=== PATIENT | male | born 1980 | race Caucasian/White ===

== ENCOUNTER 2017-07-05 14:38 | Emergency (ER) | payer OTHER ==
[~2017-07-05] VITALS: Ht 167.6 cm; Wt 81.2 kg
[~2017-07-05 14:38] MED LIST: ONDA4TAB7 SL
[2017-07-05 14:43] VITALS: TEMP 36.8; Ht 167.6 cm; Wt 81.2 kg
[2017-07-05] MEDS ORDERED: DIPHTHERIA/TETANUS/PERTUSSIS 0.5 ML SYR/VIAL IM. ONE (15:15)
[2017-07-05] MEDS ORDERED: MELO-83 PO (15:35)
[2017-07-05] MEDS ORDERED: GABA-113 PO (15:35)
--- NOTE | 2017-07-05 15:49 | DIAGNOSTIC IMAGING REPORT ---
LEFT FEMUR 3 VIEWS CLINICAL HISTORY: Laceration. Foreign body assessment. FINDINGS: AP, frog-leg, and lateral views of the left femur are obtained. No prior studies are available for comparison at the time of dictation. The skeletal structures are well mineralized. There is no radiographic evidence of left femoral fracture. The hip and knee joints are maintained. The visualized left hemipelvis appears intact. Surgical clips are noted along the spermatic cord. No radiodense foreign body is identified. The overlying soft tissues are normal as imaged. IMPRESSION: 1. Unremarkable radiographic assessment of the left femur. 2. No radiodense foreign body is identified as clinically queried. Electronically signed by: Pierre Sorenson M.D. 07/05/2017 3:48 PM Dictated Date/Time: 07/05/2017 3:47 PM
[2017-07-05] MEDS ORDERED: XYLOCAINE 1%/SOD BICARB 20 ML VIAL INFIL ONE (16:00)
[2017-07-05 16:56] VITALS: BP 139/89; PULSE 56; O2SAT 97
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
== END 2017-07-05 16:58 | disposition home or self-care (01) ==
LOC: C.EDB 14:41 → C.EDD 16:58
DX: S71.132A Puncture wound without foreign body, left thigh, initial encounter (principal); W26.8XXA Contact with other sharp object(s), not elsewhere classified, initial encounter; Z23 Encounter for immunization; Z83.3 Family history of diabetes mellitus; Z82.49 Family history of ischemic heart disease and other diseases of the circulatory system; Z84.1 Family history of disorders of kidney and ureter

== ENCOUNTER 2020-08-13 09:53 | Inpatient (IN) ==
[2020-08-13] MEDS ORDERED: dexAMETHasone**PF** 10 MG/ML VIAL IV ONE (10:13)
[2020-08-13] MEDS ORDERED: BENZONATATE 100 MG CAPSULE PO ONE (10:13)
[2020-08-13] MEDS ORDERED: ALBUTEROL HFA 8 GM INHALER INH ONE (10:13)
[2020-08-13] MEDS ORDERED: SODIUM CHLORIDE 0.9% 1000ML 500 ML IV ONE (10:18)
--- NOTE | 2020-08-13 10:18 | Emergency Department Note ---
Impression & Plan Hypoxia, SOB (shortness of breath), COVID-19, Pneumonia ED Provider Note NAME: BANDAR CARLOS AGE: 39 SEX: M : 1980 ARRIVES VIA: Ambulance INFORMANT: [Patient] ED PROVIDER(S): [Pierre Silva MD] CHIEF COMPLAINT: Shortness of breath HISTORY OF PRESENT ILLNESS: The patient is a 39-year-old male who presents to the ED with dyspnea. He also believes he now has a fever. The patient was suffering from flulike symptoms for the last 10 days. He has had body aches, some cough, some vomiting which seemed to quit yesterday. He has been having diarrhea for the last 10 days. Patient has not lost his taste or smell. The patient tested positive for Covid on the ninth, 3 days ago. He was in our ED and felt stable for discharge home. The patient states that in the last 24 hours, he has had increasing dyspnea. As per EMS, his O2 saturation was 85% on their arrival. On arrival here in the ED, he was 88%. He is now on nasal cannula oxygen and saturating well. The patient does complain of some bilateral pleuritic pain with a deep breath. The pain is moderate in severity and to the area of the thoracic back. He has never had a PE or DVT. He has no cardiac history, he has no underlying lung disease. Of note, the patient became ill a few days after his first Covid vaccination. REVIEW OF SYSTEMS: See HPI for pertinent positives and negatives. A total of ten systems were reviewed and were otherwise negative. PMHx/PSHx: See Below SOCIAL HISTORY: See Below. PHYSICAL EXAM: GENERAL: Patient is in no acute distress. HEENT: No acute trauma, normocephalic atraumatic, mucous membranes moist, no nasal congestion, no scleral icterus. NECK: No stridor, no adenopathy, no meningismus, trachea is midline. LUNGS: Wheezing with crackles bilaterally, breath sounds are somewhat diminished, no respiratory distress, breath sounds are equal. HEART: Mildly tachycardic, regular rhythm, no murmurs. ABDOMEN: Soft, nontender, bowel sounds positive, no hernias, no peritonitis. EXTREMITIES: No cyanosis or edema, full range of motion of all the joints without pain or difficulty, no signs for acute trauma. NEUROLOGIC: Oriented x 3, no acute motor or sensory deficits, no focal weakness. SKIN: No rash, no jaundice, no diaphoresis. DIFFERENTIAL DIAGNOSIS: Reactive airway disease, pneumonia, pneumothorax, COPD, COVID-19, CHF, failed outpatient treatment, infection, cardiac ischemia, pulmonary embolism, bronchitis, musculoskeletal, gastrointestinal, as well as other pathologies. EMERGENCY DEPARTMENT COURSE/PROCEDURES: ECG: Indication was shortness of breath. The ECG shows a sinus tachycardia with a rate of 107. There is no ST elevation, no PVCs. The QTc is 427. Continuous Cardiac Monitoring: An order was placed for continuous cardiac monitoring. The monitor shows a rate of 112 with sinus tachycardia. Critical Care Note: I have personally spent 46 minutes of critical care time in the direct management of this patient. This includes bedside care, interpretation of diagnostic studies, and testing, discussion with consultants, patient, and family members, and other required patient management activities. This 46 minutes is in excess of all separately billable procedures. MEDICAL DECISION MAKING: There is a moderate leukocytosis at 15,000, this is consistent with infection or just the stress of his situation. There is a normal hemoglobin and platelet count. No coagulopathy. D-dimer is elevated at 820, this elevation is consistent with the possibility of DVT or PE. Renal panel testing does not show any kidney failure or significant electrolyte abnormality. No concerning liver enzyme elevation. Lactic acid level was not elevated making sepsis less likely. Chest film shows bilateral infiltrates consistent with Covid pneumonia. ECG shows a sinus tachycardia, no acute ischemia. Chest CT does not show PE, Covid pneumonia was seen. Patient presented hypoxic. He has failed outpatient treatment for his Covid pneumonia, he has worsened and is now requiring O2 supplementation. Patient was given a 500 cc saline bolus, he was given oral Tessalon, albuterol via MDI, IV Decadron. The patient is being hospitalized. I spoke to the patient about his findings, case management has been involved. The on-call hospitalist was consulted. Past Med/Surg History Medical History Anxiety Attention deficit hyperactivity disorder (ADHD) Chronic back pain Impaired fasting glucose Learning disability Nephrolithiasis Surgical History H/O umbilical hernia repair (06/22/19) Laparoscopic Right Inguinal Hernia Repair with Mesh Open Umbilical Hernia Repair Dr. Whiting 06-22-19 H/O vasectomy History of foot surgery BILAT X4 TOTAL FOR FLAT FEET Hx of inguinal hernia surgery (06/22/19) Laparoscopic Right Inguinal Hernia Repair with Mesh(Right) Open Umbilical Hernia Repair Dr. 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 [employer] Safe at Home: Yes Assistive Devices: None Allergies Allergies Allergy/AdvReac Type Severity Reaction Status Date / Time bee venom protein (honey bee) Allergy Mild SWELLING Verified 08/13/20 12:17 Home Meds Previous Rx's Medication Instructions Recorded gabapentin 400 mg capsule 400 mg PO TID PRN #90 cap 11/22/19 meloxicam 15 mg tablet 15 mg PO DAILY PRN #30 tab 11/22/19 propranolol 10 mg tablet 10 mg PO BID PRN #60 tab 11/22/19 ondansetron HCl [Zofran] 4 mg PO Q8H PRN #7 tab 08/10/20 Results & Data (ED) Vital Signs Vital Signs - 24 hr 08/13/20 09:57 08/13/20 10:05 08/13/20 10:13 Temperature 37.4 C Temperature Source Oral Pulse Rate 103 H 109 H Pulse Rate from SpO2 Sensor 104 H Respiratory Rate 26 H 23 Respiratory Effort / Characteristics Spontaneous Spontaneous Respiratory Pattern Regular Tachypnea Blood Pressure 142/107 H 142/107 H Blood Pressure Mean 118 118 Pulse Oximetry 97 88 L 94 Oxygen Delivery Method Nasal Cannula Room Air Nasal Cannula Nasal Cannula Oxygen Flow Rate 2 2 2 Sepsis Recent Fever Within 48 Hours No Sepsis New/Unexplained Change in Mental Status No Sepsis Action Taken by Nursing Physician Notified Oxygen Flow Rate - Titration 2 2 Pulse Oximetry Post Tiitration 94 94 08/13/20 10:30 08/13/20 11:00 08/13/20 11:30 Temperature Temperature Source Pulse Rate 112 H 110 H 109 H Pulse Rate from SpO2 Sensor 112 H 112 H 109 H Respiratory Rate 26 H 24 25 H Respiratory Effort / Characteristics Respiratory Pattern Blood Pressure 150/97 H 153/91 H 148/102 H Blood Pressure Mean 114 111 117 Pulse Oximetry 93 95 95 Oxygen Delivery Method Nasal Cannula Nasal Cannula Nasal Cannula Oxygen Flow Rate 2 2 2 Sepsis Recent Fever Within 48 Hours Sepsis New/Unexplained Change in Mental Status Sepsis Action Taken by Nursing Oxygen Flow Rate - Titration Pulse Oximetry Post Tiitration 08/13/20 12:00 Temperature Temperature Source Pulse Rate 112 H Pulse Rate from SpO2 Sensor 114 H Respiratory Rate 25 H Respiratory Effort / Characteristics Respiratory Pattern Blood Pressure 145/94 H Blood Pressure Mean 111 Pulse Oximetry 95 Oxygen Delivery Method Nasal Cannula Oxygen Flow Rate 2 Sepsis Recent Fever Within 48 Hours Sepsis New/Unexplained Change in Mental Status Sepsis Action Taken by Nursing Oxygen Flow Rate - Titration Pulse Oximetry Post Tiitration Home Medications Current Medication List: was personally reviewed by me Laboratory Data Attestation: I reviewed the patient's lab results. Result diagrams: 08/13/20 10:26 08/13/20 10:26 Lab Results 08/13/20 08/13/20 08/13/20 Range/Units 10:26 10:26 10:26 WBC 15.84 H (4.8-10.8) K/uL RBC 5.03 (4.7-6.1) M/uL Hgb 15.6 (14.0-18.0) g/dL Hct 44.5 (42-52) % MCV 88.5 (80-100) fL MCH 31.0 (25-34) pg MCHC 35.1 (32-36) g/dL RDW Std Deviation 44.2 (36.4-46.3) fL RDW Coeff of María 13.5 (11.5-14.5) % Plt Count 254 (130-400) K/uL MPV 10.7 H (7.4-10.4) fL Immature Gran % (Auto) 0.3 % Neut % (Auto) 92.9 % Lymph % (Auto) 4.0 % Callahan % (Auto) 2.7 % Eos % (Auto) 0.0 % Baso % (Auto) 0.1 % Neut # (Auto) 14.72 H (1.4-6.5) K/uL Lymph # (Auto) 0.64 L (1.2-3.4) K/uL Callahan # (Auto) 0.42 (0.11-0.59) K/uL Eos # (Auto) 0.00 (0-0.5) K/uL Baso # (Auto) 0.01 (0-0.2) K/uL Immature Gran # (Auto) 0.05 H (0.00-0.02) K/uL PT 10.4 (9.0-12.0) Seconds INR 1.0 (0.9-1.1) APTT 29.2 (21.0-31.0) Seconds PTT Ratio 1.1 D-Dimer 820 H* (0-500) ug/L FEU Sodium 136 (136-145) mmol/L Potassium 3.7 (3.5-5.1) mmol/L Chloride 101 (98-107) mmol/L Carbon Dioxide 25 (21-32) mmol/L Anion Gap 10.0 (3-11) BUN 19 H (7-18) mg/dl Creatinine 1.12 (0.6-1.4) mg/dl Est Cr Clr Drug Dosing 86.8 ml/min Est GFR ( Amer) 95.4 Est GFR (Non-Af Amer) 82.3 BUN/Creatinine Ratio 16.7 (10-20) Glucose 99 (70-99) mg/dl Lactate (0.4-2.0) mmol/L Calcium 8.9 (8.5-10.1) mg/dl Magnesium 2.6 H (1.8-2.4) mg/dl Total Bilirubin 0.6 (0.2-1) mg/dl AST 61 H (15-37) U/L ALT 44 (12-78) U/L Alkaline Phosphatase 62 (45-117) U/L Troponin I < 0.015 (0-0.045) ng/ml Total Protein 7.5 (6.4-8.2) gm/dl Albumin 3.2 L (3.4-5.0) gm/dl Globulin 4.3 H (2.5-4.0) gm/dl Albumin/Globulin Ratio 0.7 L (0.9-2) Procalcitonin (0-0.5) ng/ml 08/13/20 08/13/20 Range/Units 10:26 12:03 WBC (4.8-10.8) K/uL RBC (4.7-6.1) M/uL Hgb (14.0-18.0) g/dL Hct (42-52) % MCV (80-100) fL MCH (25-34) pg MCHC (32-36) g/dL RDW Std Deviation (36.4-46.3) fL RDW Coeff of María (11.5-14.5) % Plt Count (130-400) K/uL MPV (7.4-10.4) fL Immature Gran % (Auto) % Neut % (Auto) % Lymph % (Auto) % Callahan % (Auto) % Eos % (Auto) % Baso % (Auto) % Neut # (Auto) (1.4-6.5) K/uL Lymph # (Auto) (1.2-3.4) K/uL Callahan # (Auto) (0.11-0.59) K/uL Eos # (Auto) (0-0.5) K/uL Baso # (Auto) (0-0.2) K/uL Immature Gran # (Auto) (0.00-0.02) K/uL PT (9.0-12.0) Seconds INR (0.9-1.1) APTT (21.0-31.0) Seconds PTT Ratio D-Dimer (0-500) ug/L FEU Sodium (136-145) mmol/L Potassium (3.5-5.1) mmol/L Chloride (98-107) mmol/L Carbon Dioxide (21-32) mmol/L Anion Gap (3-11) BUN (7-18) mg/dl Creatinine (0.6-1.4) mg/dl Est Cr Clr Drug Dosing ml/min Est GFR ( Amer) Est GFR (Non-Af Amer) BUN/Creatinine Ratio (10-20) Glucose (70-99) mg/dl Lactate 1.0 (0.4-2.0) mmol/L Calcium (8.5-10.1) mg/dl Magnesium (1.8-2.4) mg/dl Total Bilirubin (0.2-1) mg/dl AST (15-37) U/L ALT (12-78) U/L Alkaline Phosphatase (45-117) U/L Troponin I (0-0.045) ng/ml Total Protein (6.4-8.2) gm/dl Albumin (3.4-5.0) gm/dl Globulin (2.5-4.0) gm/dl Albumin/Globulin Ratio (0.9-2) Procalcitonin 0.38 (0-0.5) ng/ml Administered Medications Discontinued Medications Albuterol (Albuterol Hfa 8 Gm Inhaler) 3 puffs INH NOW ONE Stop: 08/13/20 10:14 Last Admin: 08/13/20 11:20 Dose: 3 puffs Documented by: [id number] Benzonatate (Benzonatate 100 Mg Capsule) 100 mg PO NOW ONE Stop: 08/13/20 10:14 Last Admin: 08/13/20 11:20 Dose: 100 mg Documented by: [id number] Dexamethasone Sodium Phosphate (DexamethasonePf 10 Mg/Ml Vial) 10 mg IV NOW ONE Stop: 08/13/20 10:14 Last Admin: 08/13/20 11:20 Dose: 10 mg Documented by: [id number] Sodium Chloride (Nss 1000ml) 500 mls @ 999 mls/hr IV .Q31M ONE Stop: 08/13/20 10:48 Last Infusion: 08/13/20 11:58 Dose: 0 mls/hr Documented by: [id number] Admin: 08/13/20 11:20 Dose: 999 mls/hr Documented by: [id number] Ceftriaxone Sodium (Rocephin) 2,000 mg in 70 mls @ 140 mls/hr IV NOW STA Stop: 08/13/20 11:47 Last Admin: 08/13/20 12:40 Dose: 140 mls/hr Documented by: [id number] Azithromycin 500 mg/ Dextrose 255 mls @ 127.5 mls/hr IV NOW STA Stop: 08/13/20 13:17 Last Admin: 08/13/20 14:05 Dose: 127.5 mls/hr Documented by: [id number] Ioversol (Optiray 320 125ml) 120 ml IV ONCE ONE Stop: 08/13/20 11:32 Last Admin: 08/13/20 11:32 Dose: 120 ml Documented by: [id number] Imaging Data Radiologist's Impression: Chest CTA 08/13/20 10:13 CHEST CTA for PULMONARY ARTERIES CT DOSE: 461.77 mGycm HISTORY: Covid positive. Shortness of breath. TECHNIQUE: Multiaxial CT images of the chest were performed following the intravenous administration of contrast to evaluate the pulmonary arteries. Maximal intensity projection images were also obtained. A dose lowering technique was utilized adhering to the principles of ALARA. COMPARISON STUDY: Chest 08/13/2020. FINDINGS: Normal caliber thoracic aorta with no evidence for dissection. The heart is top normal in size. No pleural or pericardial effusions. Suboptimal evaluation of the left lung segmental and subsegmental pulmonary arteries due to the motion artifact. Otherwise, no filling defects within the remaining pulmonary arteries to suggest pulmonary embolus. Prominent mediastinal and bilateral hilar lymph nodes. These are likely reactive. Limited views of the upper abdomen demonstrate a normal liver and spleen. Normal esophagus. No fra ctures within the visualized osseous structures. No pneumothorax. The central airways are patent. Extensive bilateral patchy airspace opacities most pronounced within the lower lung zones. This is consistent with a viral pneumonia. IMPRESSION: 1. No evidence for pulmonary embolus with limitations as described above. 2. Moderate to severe multifocal airspace opacities consistent with a viral pneumonia. ACT 112: Negative or not required by law. Electronically signed by: Franklin Partida M.D. 08/13/2020 12:40 PM Chest X-Ray 08/13/20 10:13 XR chest 1V portable HISTORY: 39 years-old Male SOB acute shortness of breath COMPARISON: 08/10/2020 TECHNIQUE: Portable AP view of the chest FINDINGS: Cardiac silhouette is upper limits of normal in size. Hypoinflation. No pneumothorax or large pleural effusion. Progressively worsened bilateral patchy interstitial and alveolar opacities. Bones appear normal. IMPRESSION: Progressively worsened pulmonary opacities suggestive of multifocal pneumonia. ACT 112: Negative or not required by law. The above report was generated using voice recognition software. It may contain grammatical, syntax or spelling errors. Electronically signed by: Mahendra Marinelli M.D. 08/13/2020 11:36 AM Discharge Plan Visit Data Chief Complaint: Shortness of Breath/Dyspnea ED Provider: Pierre Silva Discharge Problem: Hypoxia, SOB (shortness of breath), COVID-19, Pneumonia Patient Disposition: Admitted As Inpatient Condition: Serious Forms Stand Alone Forms: [facility] Prescriptions Prescriptions: No Action propranolol 10 mg tablet 10 mg PO BID PRN (Reason: Anxiety) Qty: 60 RF: 3 gabapentin 400 mg capsule 400 mg PO TID PRN (Reason: Pain) Qty: 90 RF: 3 meloxicam 15 mg tablet 15 mg PO DAILY PRN (Reason: pain) Qty: 30 RF: 3 ondansetron HCl [Zofran] 4 mg tablet 4 mg PO Q8H PRN (Reason: nausea and vomiting) Qty: 7 RF: 0 Referrals Referrals: Aldo Rodriges III, MD [Primary Care Provider] - Discharge Problem: Pneumonia Qualifiers: Pneumonia type: due to unspecified organism Laterality: bilateral Lung location: unspecified part of lung Qualified Code(s): J18.9 - Pneumonia, unspecified organism
[2020-08-13 10:43] LABS: Basophils # (auto) 0.01 K/uL (0-0.2); Basophils % (auto) 0.1 %; Hematocrit (blood only) 44.5 % (42-52); Hemoglobin 15.6 g/dL (14.0-18.0); Immature Granulocytes # (auto) 0.05 K/uL (0.00-0.02); Immature Granulocytes % (auto) 0.3 %; Lymphocytes # (auto) 0.64 K/uL (1.2-3.4); Mean Corpuscular Hgb Conc 35.1 g/dL (32-36); Mean Corpuscular Volume 88.5 fL (80-100); Mean Platelet Volume 10.7 fL (7.4-10.4); Monocytes # (auto) 0.42 K/uL (0.11-0.59); Monocytes % (auto) 2.7 %; Neutrophils # (auto) 14.72 K/uL (1.4-6.5); Neutrophils % (auto) 92.9 %; Platelet Count 254 K/uL (130-400); RDW Coefficient of Variation 13.5 % (11.5-14.5); RDW Standard Deviation 44.2 fL (36.4-46.3); Red Blood Count 5.03 M/uL (4.7-6.1); White Blood Count 15.84 K/uL (4.8-10.8)
[2020-08-13 10:57] LABS: Partial Thromboplastin Ratio 1.1; Partial Thromboplastin Time 29.2 Seconds (21.0-31.0); Prothrombin Time 10.4 Seconds (9.0-12.0)
[2020-08-13 11:02] LABS: D Dimer 820 ug/L FEU (0-500)
[2020-08-13 11:04] LABS: Alanine Aminotransferase 44 U/L (12-78); Albumin Level 3.2 gm/dl (3.4-5.0); Aspartate Aminotransferase 61 U/L (15-37); BUN Creatinine Ratio 16.7 (10-20); Blood Urea Nitrogen 19 mg/dl (7-18); Calcium 8.9 mg/dl (8.5-10.1); Carbon Dioxide 25 mmol/L (21-32); Chloride 101 mmol/L (98-107); Creatinine Clr Calc Pharmacy 86.8 ml/min; Est GFR (African American) 95.4; Est GFR (Non-African American) 82.3; Glucose 99 mg/dl (70-99); Magnesium 2.6 mg/dl (1.8-2.4); Potassium 3.7 mmol/L (3.5-5.1); Sodium 136 mmol/L (136-145)
[2020-08-13 11:08] LABS: Albumin Globulin Ratio 0.7 (0.9-2); Alkaline Phosphatase 62 U/L (45-117); Bilirubin,Total 0.6 mg/dl (0.2-1); Globulin 4.3 gm/dl (2.5-4.0); Total Protein 7.5 gm/dl (6.4-8.2); Troponin I < 0.015 ng/ml (0-0.045)
--- NOTE | 2020-08-13 11:10 | History & Physical Report ---
Date of Service August 13, 2020 Assessment & Plan (1) Acute respiratory failure with hypoxia: Aim O2 sats > 94%. (2) Sepsis: Lactate 1.0 Fluid resuscitation with NSS 500ml bolus, hemodynamically stable therefore do not feel further resuscitation is warranted in setting of COVID-19 pneumonia. Follow-up blood and sputum cultures (3) Pneumonia due to 2019-nCoV: Tocilizumab deferred given maintaining saturations on nasal cannula alone. Dexamethasone 6 mg IV daily for 10 days or until discharge Day 10 of illness therefore no clear benefit and Remdesivir. COVID isolation precautions Self prone as able (4) Bacterial pneumonia: Neutrophilia suggestive of bacterial pneumonia although procalcitonin negative. Start ceftriaxone and azithromycin. Follow up blood and sputum cultures. (5) Vomiting and diarrhea: Ondansetron 4 mg every 6 hours as needed (6) Chronic back pain: Gabapentin 400 mg p.o. 3 times daily as needed (7) DVT prophylaxis: Increased risk due to COVID-19. Lovenox 40mg SQ BID Admission and Anticipated Discharge Date Admission Date: August 13, 2020 History of Present Illness Chief Complaint: Shortness of breath, COVID-19 Primary Care Provider: Aldo Rodriges MD Oj Anderson is a 39 year old male who presents to the ER with shortness of breath, chest pain, diarrhea, fevers, dizziness, hypoxia, difficulty ambulating and white productive cough. He has known COVID-19 diagnosed 4 days ago. Symptoms started 10 days ago after his 1st Moderna COVID-19 vaccination but became significantly worse 8 days ago. He was seen in the ER 4 days ago and discharged due to no hypoxia at that time. He has continued to slowly progressively decline since then with main concern of fatigue and difficulty ambulating. No one sided weakness. Chest pain worse on inspiration and palpation. He denies any loss of taste or smell, myalgias, headache, sore throat, nasal congestion, confusion or abdominal pain. In the ER CXR was concerning for worsening pulmonary opacities and he was hypoxic on room air around 88% therefore he was referred to medicine for admission and ongoing management of hypoxia, shortness of breath and COVID-19 pneumonia. Allergies Allergy/AdvReac Type Severity Reaction Status Date / Time bee venom protein (honey bee) Allergy Mild SWELLING Verified 08/13/20 12:17 Home Medications Medication Instructions Recorded Confirmed Type gabapentin 400 mg capsule 400 mg PO TID PRN #90 cap 11/22/19 08/13/20 Rx meloxicam 15 mg tablet 15 mg PO DAILY PRN #30 tab 11/22/19 08/13/20 Rx propranolol 10 mg tablet 10 mg PO BID PRN #60 tab 11/22/19 08/13/20 Rx ondansetron HCl [Zofran] 4 mg PO Q8H PRN #7 tab 08/10/20 08/13/20 Rx Past Med/Surg History Medical History Anxiety Attention deficit hyperactivity disorder (ADHD) Chronic back pain Impaired fasting glucose Learning disability Nephrolithiasis Surgical History H/O umbilical hernia repair (06/22/19) Laparoscopic Right Inguinal Hernia Repair with Mesh Open Umbilical Hernia Repair Dr. Whiting 06-22-19 H/O vasectomy History of foot surgery BILAT X4 TOTAL FOR FLAT FEET Hx of inguinal hernia surgery (06/22/19) Laparoscopic Right Inguinal Hernia Repair with Mesh(Right) Open Umbilical Hernia Repair Dr. 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 [employer] Other Information That Helps Us Care for You: No Feels Safe at Home: Yes Assistive Devices: Oxygen - Continuous Review of Systems Review of Systems: All systems reviewed & are unremarkable except as noted in HPI & below Physical Exam Constitutional: well developed and well nourished; no acute distress Eyes: PERRL, conjunctivae normal, anicteric sclerae ENMT: external ear and nose normal, oropharynx normal Neck: trachea midline, no thyromegaly Respiratory: + retractions, + uses accessory muscles, + cough (dry) and able to speak in complete sentences Auscultation: + crackles (coarse posteriorly throughout); no rales, no rhonchi and no wheezes Cardiovascular: Rate/Rhythm: regular rhythm and + tachycardic Heart Sounds: no murmur Vessels: no JVD Extremities: normal capillary refill; no calf tenderness and no pedal edema Gastrointestinal (Abdomen): normal bowel sounds, soft, nontender, no hepatosplenomegaly Skin: no rashes, warm and dry Neurologic: moves all extremities and awake; no focal motor deficits and not confused Psychiatric: A+Ox3, euthymic affect Genitourinary: no CVA tenderness Results & Data Results & Data ([facility]) Vital Signs (Past 12 Hours) Vital Signs Temp Pulse Resp BP Pulse Ox 08/13/20 10:13 94 08/13/20 10:05 37.4 C 109 H 23 142/107 H 88 L Diagnostic Findings XR chest 1V portable IMPRESSION: Progressively worsened pulmonary opacities suggestive of multifocal pneumonia. CHEST CTA for PULMONARY ARTERIES IMPRESSION: 1. No evidence for pulmonary embolus with limitations as described above. 2. Moderate to severe multifocal airspace opacities consistent with a viral pneumonia. Medications Administered ER medications given: Dexamethasone 10 mg IV Tessalon Perle 100 mg p.o. Albuterol 3 puffs inhaler NSS 500 mL bolus Ceftriaxone 2 g IV Azithromycin 500 mg IV ECG Indication: SOB/dyspnea Rate (beats per minute): 107 Rhythm: sinus tachycardia Findings: no acute ischemic change Comparison ECG Date: no prior available Code Status & VTE Plan Code Status Full VTE Prophylaxis Plan VTE Prophylaxis will be ordered: Yes PG Care Time/CCT Total # of Minutes Spent Total Time Spent with Patient: Total time spent is greater than 50% in coordination of care (as documented) at patient's floor/unit and/or counseling patient: Coding Level of Care Code 07170 Initial Inpt Care Lvl 3 Diagnoses Acute respiratory failure with hypoxia J96.01 Sepsis A41.9; R65.20; J96.01 Acute respiratory failure type: with hypoxia Sepsis acute organ dysfunction status: with acute organ dysfunction Sepsis type: sepsis due to unspecified organism Severe sepsis acute organ dysfunction type: acute respiratory failure Severe sepsis shock status: without septic shock Pneumonia due to 2019-nCoV U07.1; J12.82 Bacterial pneumonia J15.9 Vomiting and diarrhea R11.10; R19.7 Chronic back pain M54.9; G89.29 DVT prophylaxis Z29.9 (1) Sepsis Acute respiratory failure type: with hypoxia Sepsis acute organ dysfunction status: with acute organ dysfunction Sepsis type: sepsis due to unspecified organism Severe sepsis acute organ dysfunction type: acute respiratory failure Severe sepsis shock status: without septic shock Qualified Code(s): A41.9 - Sepsis, unspecified organism; R65.20 - Severe sepsis without septic shock; J96.01 - Acute respiratory failure with hypoxia
[2020-08-13] MEDS ORDERED: AZITHROMYCIN 500 MG in DEXTROSE 5% 250 ML IV STA (11:18)
[2020-08-13] MEDS ORDERED: cefTRIAXone SODIUM 2,000 MG/70 ML BAG IV STA (11:18)
[2020-08-13] MEDS ORDERED: OPTIRAY 320 125ml IV ONE (11:31)
--- NOTE | 2020-08-13 11:37 | XRay Report ---
XR chest 1V portable HISTORY: 39 years-old Male SOB acute shortness of breath COMPARISON: 08/10/2020 TECHNIQUE: Portable AP view of the chest FINDINGS: Cardiac silhouette is upper limits of normal in size. Hypoinflation. No pneumothorax or large pleural effusion. Progressively worsened bilateral patchy interstitial and alveolar opacities. Bones appear normal. IMPRESSION: Progressively worsened pulmonary opacities suggestive of multifocal pneumonia. ACT 112: Negative or not required by law. The above report was generated using voice recognition software. It may contain grammatical, syntax o r spelling errors. Electronically signed by: Mahendra Marinelli M.D. 08/13/2020 11:36 AM
--- NOTE | 2020-08-13 12:41 | CT Scan Report ---
CHEST CTA for PULMONARY ARTERIES CT DOSE: 461.77 mGycm HISTORY: Covid positive. Shortness of breath. TECHNIQUE: Multiaxial CT images of the chest were performed following the intravenous administration of contrast to evaluate the pulmonary arteries. Maximal intensity projection images were also obtaine d. A dose lowering technique was utilized adhering to the principles of ALARA. COMPARISON STUDY: Chest 08/13/2020. FINDINGS: Normal caliber thoracic aorta with no evidence for dissection. The heart is top normal in s ize. No pleural or pericardial effusions. Suboptimal evaluation of the left lung segmental and subseg mental pulmonary arteries due to the motion artifact. Otherwise, no filling defects within the remain ing pulmonary arteries to suggest pulmonary embolus. Prominent mediastinal and bilateral hilar lymph nodes. These are likely reactive. Limited views of the upper abdomen demonstrate a normal liver and s pleen. Normal esophagus. No fractures within the visualized osseous structures. No pneumothorax. The central airways are patent. Extensive bilateral patchy airspace opacities most pronounced within the lower lung zones. This is consistent with a viral pneumonia. IMPRESSION: 1. No evidence for pulmonary embolus with limitations as described above. 2. Moderate to severe multifocal airspace opacities consistent with a viral pneumonia. ACT 112: Negative or not required by law. Electronically signed by: Franklin Partida M.D. 08/13/2020 12:40 PM
[2020-08-13] MEDS ORDERED: ACETAMINOPHEN 325 MG TAB PO PRN (18:47)
[2020-08-13] MEDS ORDERED: ONDANSETRON INJ 2 MG/ML 2 ML VIAL IV PRN (18:47)
[2020-08-13] MEDS ORDERED: ALUMINUM/MAGNESIUM SUSP 30 ML UDC PO PRN (18:47)
[2020-08-13] MEDS ORDERED: POLYETHYLENE (MIRALAX) 17 GM PACK PO PRN (18:47)
[2020-08-13] MEDS ORDERED: MELOXICAM 7.5 MG TAB PO PRN (18:47)
[2020-08-13] MEDS ORDERED: GABAPENTIN 400 MG CAP PO PRN (18:47)
[2020-08-13] MEDS: ENOXAPARIN INJ 40 MG/0.4 ML SYR SQ SCH (21:46)
[2020-08-14] MEDS: guaiFENesin/DEXTROM SYRUP 100MG/10MG 5ML UDC PO PRN ×4 (04:28→21:09)
[2020-08-14] MEDS: SODIUM CHLORIDE 0.9% 1000ML 1,000 ML IV SCH ×2 (04:28→16:24)
--- NOTE | 2020-08-14 05:48 | Electrocardiogram Report ---
Test Reason : Blood Pressure : / mmHG Vent. Rate : 107 BPM Atrial Rate : 107 BPM P-R Int : 128 ms QRS Dur : 096 ms QT Int : 320 ms P-R-T Axes : 047 002 016 degrees QTc Int : 427 ms Sinus tachycardia Possible Left atrial enlargement Borderline ECG No previous ECGs available Confirmed by Jonathan Rosenthal ([id number]) on 08/14/2020 5:47:29 AM Referred By: REFERRED SELF Confirmed By:Jonathan Rosenthal
[2020-08-14 07:06] LABS: Basophils # (auto) 0.01 K/uL (0-0.2); Basophils % (auto) 0.1 %; Hematocrit (blood only) 41.7 % (42-52); Hemoglobin 14.4 g/dL (14.0-18.0); Immature Granulocytes # (auto) 0.08 K/uL (0.00-0.02); Immature Granulocytes % (auto) 0.4 %; Lymphocytes # (auto) 0.63 K/uL (1.2-3.4); Lymphocytes % (auto) 3.2 %; Mean Corpuscular Hemoglobin 30.5 pg (25-34); Mean Corpuscular Hgb Conc 34.5 g/dL (32-36); Mean Corpuscular Volume 88.3 fL (80-100); Mean Platelet Volume 10.9 fL (7.4-10.4); Monocytes # (auto) 0.82 K/uL (0.11-0.59); Monocytes % (auto) 4.2 %; Neutrophils % (auto) 92.1 %; Platelet Count 307 K/uL (130-400); RDW Coefficient of Variation 13.7 % (11.5-14.5); RDW Standard Deviation 44.5 fL (36.4-46.3); Red Blood Count 4.72 M/uL (4.7-6.1); White Blood Count 19.64 K/uL (4.8-10.8)
[2020-08-14 07:34] LABS: BUN Creatinine Ratio 23.3 (10-20); Calcium 8.4 mg/dl (8.5-10.1); Creatinine Clr Calc Pharmacy 105.6 ml/min; Est GFR (Non-African American) 104.4; Potassium 3.5 mmol/L (3.5-5.1)
[2020-08-14 07:42] LABS: C Reactive Protein 21.6 mg/dl (0-0.29)
[2020-08-14] MEDS: dexAMETHasone 6 MG in SYRINGE 0 ML IV SCH (08:08)
[2020-08-14] MEDS: ENOXAPARIN INJ 40 MG/0.4 ML SYR SQ SCH ×2 (08:09→21:09)
[2020-08-14] MEDS: AZITHROMYCIN 250 MG TAB PO SCH (08:09)
--- NOTE | 2020-08-14 12:43 | Hospitalist Progress Note ---
Date of Service August 14, 2020 Assessment & Plan (1) Pneumonia due to 2019-nCoV: Initial symptoms ~08/05/2020 after getting his first Moderna Covid vaccination. Remdesivir and plasma not shown to be beneficial this late in presentation. - Tocilizumab deferred given maintaining saturations on nasal cannula alone. - Dexamethasone 6 mg IV daily for 10 days (End date: 08/23/2020) - COVID isolation precautions - Self prone as able (instructed again today) -> Stable today from respiratory standpoint, though he feels worse subjective. (2) Bacterial pneumonia: Neutrophilia suggestive of bacterial pneumonia, although procalcitonin negative. - Continue ceftriaxone and azithromycin x 5 days (End date: 08/17/2020) - Follow up blood and sputum cultures. (3) Acute respiratory failure with hypoxia: Aim O2 sats > 94%. (4) Sepsis: Due to Covid-19. - Resolved with IV fluids, abx. (5) Chronic back pain: Gabapentin 400 mg p.o. 3 times daily as needed (6) DVT prophylaxis: Lovenox 40mg SQ BID as per hospital policy; supported by recent literature (https://onlinelibrary.viera.com/doi/full/10.1002/ajh.88297). Admission and Anticipated Discharge Date Admission Date: August 13, 2020 Subjective Reports he is feeling worse today. More cough, more shortness of breath. Just feels more fatigued and tired out. Reports no fevers/chills, chest pain, abdominal pain, nausea, or vomiting. Physical Exam Constitutional: WD/WN, vitals as above Eyes: EOM intact bilaterally; no conjunctival abnormality ENMT: external ear and nose normal, oropharynx normal Neck: trachea midline, no thyromegaly normal visual inspection Respiratory: normal respiratory effort, lungs clear to auscultation no respiratory distress Cardiovascular: RRR, no murmur, no edema Gastrointestinal (Abdomen): Inspection/Auscultation: abdomen normal to inspection; abdomen not distended Musculoskeletal: no cyanosis or clubbing, extremities motor strength 5/5 Skin: no rashes, warm and dry Neurologic: moves all extremities and awake Psychiatric: Orientation: alert, oriented to person and cooperative Results & Data Results & Data ([facility]) Vital Signs (Past 12 Hours) Vital Signs Temp Pulse Pulse Resp BP Pulse Ox 08/14/20 12:02 36.7 C 80 18 134/88 93 08/14/20 08:04 36.7 C 95 H 20 134/79 92 08/14/20 08:00 77 08/14/20 03:45 90 08/14/20 03:38 36.7 C 86 18 122/73 87 L PG Care Time/CCT Total # of Minutes Spent Total Time Spent with Patient: Total time spent is greater than 50% in coordination of care (as documented) at patient's floor/unit and/or counseling patient: Coding Level of Care Code 94519 Subseq Hosp Care Lvl 3 Diagnoses Pneumonia due to 2019-nCoV U07.1; J12.82 Bacterial pneumonia J15.9 Acute respiratory failure with hypoxia J96.01 Sepsis A41.9; R65.20; J96.01 Acute respiratory failure type: with hypoxia Sepsis acute organ dysfunction status: with acute organ dysfunction Sepsis type: sepsis due to unspecified organism Severe sepsis acute organ dysfunction type: acute respiratory failure Severe sepsis shock status: without septic shock Chronic back pain M54.9; G89.29 DVT prophylaxis Z29.9 (1) Sepsis Acute respiratory failure type: with hypoxia Sepsis acute organ dysfunction status: with acute organ dysfunction Sepsis type: sepsis due to unspecified organism Severe sepsis acute organ dysfunction type: acute respiratory failure Severe sepsis shock status: without septic shock Qualified Code(s): A41.9 - Sepsis, unspecified organism; R65.20 - Severe sepsis without septic shock; J96.01 - Acute respiratory failure with hypoxia
[2020-08-14] MEDS: cefTRIAXone SODIUM 2,000 MG/70 ML BAG IV SCH (13:10)
[2020-08-15] MEDS: MELATONIN 3 MG TAB PO PRN ×2 (01:36→21:23)
[2020-08-15] MEDS: SODIUM CHLORIDE 0.9% 1000ML 1,000 ML IV SCH ×2 (04:35→14:06)
[2020-08-15 07:20] LABS: Hematocrit (blood only) 41.9 % (42-52); Hemoglobin 14.6 g/dL (14.0-18.0); Mean Corpuscular Hemoglobin 30.9 pg (25-34); Mean Corpuscular Hgb Conc 34.8 g/dL (32-36); Mean Corpuscular Volume 88.6 fL (80-100); Mean Platelet Volume 10.9 fL (7.4-10.4); Platelet Count 429 K/uL (130-400); RDW Coefficient of Variation 13.9 % (11.5-14.5); RDW Standard Deviation 45.5 fL (36.4-46.3); Red Blood Count 4.73 M/uL (4.7-6.1); White Blood Count 18.77 K/uL (4.8-10.8)
[2020-08-15 07:48] LABS: BUN Creatinine Ratio 25.4 (10-20); Calcium 8.7 mg/dl (8.5-10.1); Creatinine Clr Calc Pharmacy 110.5 ml/min; Est GFR (African American) 129.8; Magnesium 2.6 mg/dl (1.8-2.4); Potassium 3.4 mmol/L (3.5-5.1)
[2020-08-15] MEDS: dexAMETHasone 6 MG in SYRINGE 0 ML IV SCH (08:19)
[2020-08-15] MEDS: AZITHROMYCIN 250 MG TAB PO SCH (08:19)
[2020-08-15] MEDS: ENOXAPARIN INJ 40 MG/0.4 ML SYR SQ SCH ×2 (08:19→21:23)
[2020-08-15] MEDS: BENZONATATE 100 MG CAPSULE PO SCH ×3 (08:19→21:23)
[2020-08-15] MEDS: cefTRIAXone SODIUM 2,000 MG/70 ML BAG IV SCH (14:06)
--- NOTE | 2020-08-15 17:03 | Hospitalist Progress Note ---
Date of Service August 15, 2020 Assessment & Plan (1) Pneumonia due to 2019-nCoV: Initial symptoms ~08/05/2020 after getting his first Moderna Covid vaccination. Remdesivir and plasma not shown to be beneficial this late in presentation. - Tocilizumab deferred given maintaining saturations on nasal cannula alone. - Dexamethasone 6 mg IV daily for 10 days (End date: 08/23/2020) - COVID isolation precautions - Self prone as able -> Improving today. More energy. Breathing better as well. (2) Bacterial pneumonia: Neutrophilia suggestive of bacterial pneumonia, although procalcitonin negative. - Continue ceftriaxone and azithromycin x 5 days (End date: 08/17/2020) - Follow up blood and sputum cultures. (3) Acute respiratory failure with hypoxia: Aim O2 sats > 94%. (4) Sepsis: Due to Covid-19. - Resolved with IV fluids, abx. (5) Chronic back pain: Gabapentin 400 mg p.o. 3 times daily as needed (6) DVT prophylaxis: Lovenox 40mg SQ BID as per hospital policy; supported by recent literature (https://onlinelibrary.viera.com/doi/full/10.1002/ajh.43125). Admission and Anticipated Discharge Date Admission Date: August 13, 2020 Subjective Feeling much more energetic today. Much better spirits. Reports no fevers/chills, chest pain, shortness of breath, abdominal pain, nausea, or vomiting. Physical Exam Constitutional: WD/WN, vitals as above Eyes: EOM intact bilaterally; no conjunctival abnormality ENMT: external ear and nose normal, oropharynx normal Neck: trachea midline, no thyromegaly normal visual inspection Respiratory: normal respiratory effort, lungs clear to auscultation no respiratory distress Cardiovascular: RRR, no murmur, no edema Gastrointestinal (Abdomen): Inspection/Auscultation: abdomen normal to inspection; abdomen not distended Musculoskeletal: no cyanosis or clubbing, extremities motor strength 5/5 Skin: no rashes, warm and dry Neurologic: moves all extremities and awake Psychiatric: Orientation: alert, oriented to person and cooperative Results & Data Results & Data ([facility]) Vital Signs (Past 12 Hours) Vital Signs Temp Pulse Pulse Resp BP BP Pulse Ox 08/15/20 16:00 62 08/15/20 14:48 36.5 C 64 16 131/84 94 08/15/20 11:58 36.4 C L 84 16 138/94 92 08/15/20 07:37 70 08/15/20 06:54 92 08/15/20 06:51 36.7 C 95 H 20 142/85 H 82 L PG Care Time/CCT Total # of Minutes Spent Total Time Spent with Patient: Total time spent is greater than 50% in coordination of care (as documented) at patient's floor/unit and/or counseling patient: Coding Level of Care Code 48779 Subseq Hosp Care Lvl 2 Diagnoses Pneumonia due to 2019-nCoV U07.1; J12.82 Bacterial pneumonia J15.9 Acute respiratory failure with hypoxia J96.01 Sepsis A41.9; R65.20; J96.01 Sepsis type: sepsis due to unspecified organism Sepsis acute organ dysfunction status: with acute organ dysfunction Severe sepsis acute organ dysfunction type: acute respiratory failure Acute respiratory failure type: with hypoxia Severe sepsis shock status: without septic shock Chronic back pain M54.9; G89.29 DVT prophylaxis Z29.9 (1) Sepsis Sepsis type: sepsis due to unspecified organism Sepsis acute organ dysfunction status: with acute organ dysfunction Severe sepsis acute organ dysfunction type: acute respiratory failure Acute respiratory failure type: with hypoxia Severe sepsis shock status: without septic shock Qualified Code(s): A41.9 - Sepsis, unspecified organism; R65.20 - Severe sepsis without septic shock; J96.01 - Acute respiratory failure with hypoxia
[2020-08-15] MEDS ORDERED: diphenhydrAMINE Capsule 25 MG CAP PO SCH (21:00)
[2020-08-15] MEDS ORDERED: POTASSIUM CHLORIDE CRTAB 20 MEQ TABCR PO STA (23:02)
[2020-08-16] MEDS ORDERED: diphenhydrAMINE Capsule 25 MG CAP PO ONE (02:00)
--- NOTE | 2020-08-16 03:46 | Communication Note ---
Date of Service: August 16, 2020 I was notified that the patient was bradycardic into the upper 40's, blood pressure 130's systolic. He was complaining of some shortness of breath but no c hest pain. - EKG with sinus bradycardia - troponin ordered to r/o ischemia as cause - ECHO to evaluate for any structural causes
[2020-08-16] MEDS: ENOXAPARIN INJ 40 MG/0.4 ML SYR SQ SCH ×2 (08:15→20:49)
[2020-08-16] MEDS: dexAMETHasone 6 MG in SYRINGE 0 ML IV SCH (08:15)
[2020-08-16] MEDS: BENZONATATE 100 MG CAPSULE PO SCH ×3 (08:16→20:49)
[2020-08-16] MEDS: AZITHROMYCIN 250 MG TAB PO SCH (08:16)
[2020-08-16] MEDS: guaiFENesin/DEXTROM SYRUP 100MG/10MG 5ML UDC PO PRN ×3 (12:08→20:49)
[2020-08-16] MEDS: cefTRIAXone SODIUM 2,000 MG/70 ML BAG IV SCH (12:08)
--- NOTE | 2020-08-16 14:26 | Hospitalist Progress Note ---
Date of Service August 16, 2020 Assessment & Plan (1) Pneumonia due to 2019-nCoV: Initial symptoms ~08/05/2020 after getting his first Moderna Covid vaccination. Remdesivir and plasma not shown to be beneficial this late in presentation. - Tocilizumab deferred given maintaining saturations on nasal cannula alone. - Dexamethasone 6 mg IV daily for 10 days (End date: 08/23/2020) - COVID isolation precautions - Self prone as able -> A bit worse today with higher O2 need. This patient has an unstable O2 demand and ongoing Covid-19 pneumonia. He cannot be safely sent home without substantial risk to life and health. (2) Bacterial pneumonia: Neutrophilia suggestive of bacterial pneumonia, although procalcitonin negative. - Continue ceftriaxone and azithromycin x 5 days (End date: 08/17/2020) - Follow up blood and sputum cultures. - No growth as of 08/16. (3) Acute respiratory failure with hypoxia: Aim O2 sats > 90%. (4) Sepsis: Due to Covid-19. - Resolved with IV fluids, abx. (5) Chronic back pain: Gabapentin 400 mg p.o. 3 times daily as needed (6) DVT prophylaxis: Lovenox 40mg SQ BID as per hospital policy; supported by recent literature (https://onlinelibrary.viera.com/doi/full/10.1002/ajh.00175). Admission and Anticipated Discharge Date Admission Date: August 13, 2020 Subjective Had a tough night and felt more short of breath. Ended up needing more O2. Feeling better now. Reports no fevers/chills, chest pain, abdominal pain, nausea, or vomiting. Physical Exam Constitutional: WD/WN, vitals as above Eyes: EOM intact bilaterally; no conjunctival abnormality ENMT: external ear and nose normal, oropharynx normal Neck: trachea midline, no thyromegaly normal visual inspection Respiratory: normal respiratory effort, lungs clear to auscultation no respiratory distress Cardiovascular: RRR, no murmur, no edema Gastrointestinal (Abdomen): Inspection/Auscultation: abdomen normal to inspection; abdomen not distended Musculoskeletal: no cyanosis or clubbing, extremities motor strength 5/5 Skin: no rashes, warm and dry Neurologic: moves all extremities and awake Psychiatric: Orientation: alert, oriented to person and cooperative Results & Data Results & Data ([facility]) Vital Signs (Past 12 Hours) Vital Signs Temp Pulse Pulse Pulse Resp BP BP 08/16/20 12:07 36.7 C 52 L 22 124/86 08/16/20 11:34 36.6 C 77 78 16 173/77 H 08/16/20 08:13 36.7 C 57 L 22 130/83 08/16/20 07:22 49 L 08/16/20 04:21 52 L 20 137/78 08/16/20 03:45 48 L 08/16/20 02:35 36.8 C 48 L 21 138/82 Pulse Ox 08/16/20 12:07 93 08/16/20 11:34 98 08/16/20 08:13 94 08/16/20 07:22 08/16/20 04:21 95 08/16/20 03:45 08/16/20 02:35 98 PG Care Time/CCT Total # of Minutes Spent Total Time Spent with Patient: Total time spent is greater than 50% in coordination of care (as documented) at patient's floor/unit and/or counseling patient: Coding Level of Care Code 36814 Subseq Hosp Care Lvl 2 Diagnoses Pneumonia due to 2019-nCoV U07.1; J12.82 Bacterial pneumonia J15.9 Acute respiratory failure with hypoxia J96.01 Sepsis A41.9; R65.20; J96.01 Sepsis type: sepsis due to unspecified organism Sepsis acute organ dysfunction status: with acute organ dysfunction Severe sepsis acute organ dysfunction type: acute respiratory failure Acute respiratory failure type: with hypoxia Severe sepsis shock status: without septic shock Chronic back pain M54.9; G89.29 DVT prophylaxis Z29.9 (1) Sepsis Sepsis type: sepsis due to unspecified organism Sepsis acute organ dysfunction status: with acute organ dysfunction Severe sepsis acute organ dysfunction type: acute respiratory failure Acute respiratory failure type: with hypoxia Severe sepsis shock status: without septic shock Qualified Code(s): A41.9 - Sepsis, unspecified organism; R65.20 - Severe sepsis without septic shock; J96.01 - Acute respiratory failure with hypoxia
[2020-08-16] MEDS ORDERED: hydrOXYzine HCl 25 MG TAB PO PRN (14:33)
[2020-08-16] MEDS: MELATONIN 3 MG TAB PO PRN (20:49)
--- NOTE | 2020-08-17 06:13 | Electrocardiogram Report ---
Test Reason : Blood Pressure : / mmHG Vent. Rate : 057 BPM Atrial Rate : 057 BPM P-R Int : 132 ms QRS Dur : 100 ms QT Int : 466 ms P-R-T Axes : 051 013 016 degrees QTc Int : 453 ms Sinus bradycardia with sinus arrhythmia Otherwise normal ECG When compared with ECG of 13-AUG-2020 10:01, Vent. rate has decreased BY 50 BPM Confirmed by Jonathan Rosenthal ([id number]) on 08/17/2020 6:13:39 AM Referred By: REFERRED SELF Confirmed By:Jonathan Rosenthal
[2020-08-17 07:25] LABS: Hematocrit (blood only) 42.7 % (42-52); Mean Corpuscular Hemoglobin 31.3 pg (25-34); Mean Corpuscular Hgb Conc 35.1 g/dL (32-36); Mean Corpuscular Volume 89.1 fL (80-100); Mean Platelet Volume 10.2 fL (7.4-10.4); Platelet Count 584 K/uL (130-400); RDW Coefficient of Variation 13.7 % (11.5-14.5); RDW Standard Deviation 45.3 fL (36.4-46.3); Red Blood Count 4.79 M/uL (4.7-6.1); White Blood Count 12.67 K/uL (4.8-10.8)
[2020-08-17 08:02] LABS: BUN Creatinine Ratio 29.8 (10-20); Calcium 8.7 mg/dl (8.5-10.1); Creatinine Clr Calc Pharmacy 90.4 ml/min; Est GFR (African American) 110.7; Est GFR (Non-African American) 95.5; Potassium 3.8 mmol/L (3.5-5.1)
[2020-08-17] MEDS: AZITHROMYCIN 250 MG TAB PO SCH (08:09)
[2020-08-17] MEDS: dexAMETHasone 6 MG in SYRINGE 0 ML IV SCH (08:09)
[2020-08-17] MEDS: ENOXAPARIN INJ 40 MG/0.4 ML SYR SQ SCH (08:09)
[2020-08-17] MEDS: BENZONATATE 100 MG CAPSULE PO SCH (08:09)
[2020-08-17] MEDS: guaiFENesin/DEXTROM SYRUP 100MG/10MG 5ML UDC PO PRN (08:09)
[2020-08-17] MEDS: cefTRIAXone SODIUM 2,000 MG/70 ML BAG IV SCH (12:00)
--- NOTE | 2020-08-17 13:48 | Discharge Summary ---
Date of Service August 17, 2020 Admission HPI Per Admitting Provider Oj Anderson is a 39 year old male who presents to the ER with shortness of breath, chest pain, diarrhea, fevers, dizziness, hypoxia, difficulty ambulating and white productive cough. He has known COVID-19 diagnosed 4 days ago. Symptoms started 10 days ago after his 1st Moderna COVID-19 vaccination but became significantly worse 8 days ago. He was seen in the ER 4 days ago and discharged due to no hypoxia at that time. He has continued to slowly progressively decline since then with main concern of fatigue and difficulty ambulating. No one sided weakness. Chest pain worse on inspiration and palpation. He denies any loss of taste or smell, myalgias, headache, sore throat, nasal congestion, confusion or abdominal pain. In the ER CXR was concerning for worsening pulmonary opacities and he was hypoxic on room air around 88% therefore he was referred to medicine for admission and ongoing management of hypoxia, shortness of breath and COVID-19 pneumonia. Principal Diagnosis Covid-19 pneumonia Discharge Exam Constitutional WD/WN, vitals as above Eyes EOM intact bilaterally; no conjunctival abnormality ENMT external ear and nose normal, oropharynx normal Neck trachea midline, no thyromegaly normal visual inspection Respiratory normal respiratory effort, lungs clear to auscultation no respiratory distress Cardiovascular RRR, no murmur, no edema Gastrointestinal (Abdomen) Inspection/Auscultation: abdomen normal to inspection; abdomen not distended Musculoskeletal no cyanosis or clubbing, extremities motor strength 5/5 Skin no rashes, warm and dry Neurologic moves all extremities and awake Psychiatric Orientation: alert, oriented to person and cooperative Discharge Data Allergies Allergy/AdvReac Type Severity Reaction Status Date / Time bee venom protein (honey bee) Allergy Mild SWELLING Verified 08/13/20 12:17 Consultations 08/13/20 10:36 ED Decision to Admit Stat Ordered Studies 08/13/20 10:13 CT angio chest PE protocol Stat Hospital Course (1) Pneumonia due to 2019-nCoV: Initial symptoms ~08/05/2020 after getting his first Moderna Covid vaccination. Remdesivir and plasma not shown to be beneficial this late in presentation. - Tocilizumab deferred given maintaining saturations on nasal cannula alone. - Dexamethasone 6 mg IV daily for 10 days (End date: 08/23/2020) -> Switched to PO on discharge to finish course. - COVID isolation precautions - Discharged on home O2 2L NC at rest and 4L with exertion to keep SpO2 > 90%. (2) Bacterial pneumonia: Neutrophilia suggestive of bacterial pneumonia, although procalcitonin negative. - Continue ceftriaxone and azithromycin x 5 days (End date: 08/18/2020). - Follow up blood and sputum cultures. - No growth as of 08/17. - Discharged with 2 more days of Omnicef. Had finished azithromycin course prior to discharge. (3) Acute respiratory failure with hypoxia: Aim O2 sats > 90%. (4) Sepsis: Due to Covid-19. - Resolved with IV fluids, abx. (5) Chronic back pain: Gabapentin 400 mg p.o. 3 times daily as needed (6) DVT prophylaxis: Lovenox 40mg SQ BID as per hospital policy; supported by recent literature (https://onlinelibrary.viera.com/doi/full/10.1002/ajh.29351). Total Time Total Time Spent Total Time Spent (In Minutes): 45 Discharge Plan Discharge Items Patient Disposition: Home - Self-Care Reason For Visit: SEPSIS, COVID-19 PNEUMONIA Discharge Diagnosis: Covid-19 pneumonia Condition on Discharge: Good Activity: Resume your previous activity Non-emergency contact: Primary Care Provider Call non-emergency contact if: your symptoms worsen Follow-up/Referrals: Aldo Rodriges III, MD [Primary Care Provider] - 08/22/20 8:30 am (VIRTUAL APPT WITH DONA LEUNG) Diet: Regular Addtl Attending Provider Instructions: Mr. Anderson, You were admitted to the hospital with Covid-19 pneumonia. We gave you steroids and antibiotics, and you are feeling better. We are going to send you home on home oxygen which we hope you will only need for a few weeks. Please see Dr. Rodriges in 2 weeks after you are no longer infectious. Please get your second Covid-19 vaccination as soon as you are able. There is no reason to delay it after Covid after your infectious period is over. Please take your dexamethasone once per day. The next dose is tomorrow morning. You need to take the steroid until August 23. Please take your antibiotic twice per day. The next dose will be tomorrow morning as well. You only need 2 more days of antibiotics. Pending Studies at Discharge: No Stand-Alone Forms: My [facility] Audioscribe, Smoking Cessation Medications and DC Order Prescriptions: New dextromethorphan-guaifenesin 10-100 mg/5 mL Syrup 5 ml PO Q6H PRN (Reason: cough) Qty: 237 RF: 0 dexamethasone 6 mg tablet 6 mg PO DAILY Qty: 6 RF: 0 cefdinir 300 mg capsule 300 mg PO BID Qty: 4 RF: 0 Continued propranolol 10 mg tablet 10 mg PO BID PRN (Reason: Anxiety) Qty: 60 RF: 3 gabapentin 400 mg capsule 400 mg PO TID PRN (Reason: Pain) Qty: 90 RF: 3 meloxicam 15 mg tablet 15 mg PO DAILY PRN (Reason: pain) Qty: 30 RF: 3 ondansetron HCl [Zofran] 4 mg tablet 4 mg PO Q8H PRN (Reason: nausea and vomiting) Qty: 7 RF: 0 Discharge Orders: Discharge Order (Routine); Ordered 08/17/20 Ordered By: Luke Syed/Other Patient Handouts: COVID-19 Home Care Admission Data Admit Date/Time: 08/13/20 12:55 Attending Provider: Luke Guzman Admit Provider: Daniel Rodriguez Primary Care Provider: Aldo Rodriges III Other Providers: Luke Guzman Other Interventions: Discharge Summary Assessment (RN) Last Done: 08/17/20 11:36 Coding Level of Care Code D/C Day Management >30 mins Diagnoses Pneumonia due to 2019-nCoV U07.1; J12.82 Bacterial pneumonia J15.9 Acute respiratory failure with hypoxia J96.01 Sepsis A41.9; R65.20; J96.01 Sepsis type: sepsis due to unspecified organism Sepsis acute organ dysfunction status: with acute organ dysfunction Severe sepsis acute organ dysfunction type: acute respiratory failure Acute respiratory failure type: with hypoxia Severe sepsis shock status: without septic shock Chronic back pain M54.9; G89.29 DVT prophylaxis Z29.9
== END 2020-08-17 15:15 | disposition home or self-care (01) | DRG 871 ==
LOC: ED 09:53 → SUATTDRO 12:55 → 2W 12:55

== ENCOUNTER 2024-06-15 17:04 | Observation (INO) ==
[2024-06-15] MEDS: SODIUM CHLORIDE 0.9% 1,000 ML IV SCH (17:10)
[2024-06-15] MEDS: NALOXONE HCL 0.4 MG/1 ML VIAL/CARP IV STA (17:11)
[2024-06-15 17:27] LABS: Basophils # (auto) 0.04 K/uL (0.00-0.20); Basophils % (auto) 0.3 %; Eosinophils # (auto) 0.06 K/uL (0.00-0.50); Eosinophils % (auto) 0.5 %; Hematocrit (blood only) 49.7 % (42.0-52.0); Hemoglobin 17.2 g/dl (14.0-18.0); Immature Granulocytes # (auto) 0.06 K/uL (0.01-0.20); Immature Granulocytes % (auto) 0.5 %; Lymphocytes # (auto) 2.23 K/uL (1.20-3.40); Lymphocytes % (auto) 18.3 %; Mean Corpuscular Hemoglobin 30.8 pg (25.0-34.0); Mean Corpuscular Hgb Conc 34.6 g/dL (32.0-36.0); Mean Corpuscular Volume 88.9 fL (80.0-100.0); Mean Platelet Volume 9.6 fL (9.4-12.4); Monocytes # (auto) 0.88 K/uL (0.11-0.59); Monocytes % (auto) 7.2 %; Neutrophils # (auto) 8.93 K/uL (1.40-6.50); Neutrophils % (auto) 73.2 %; Platelet Count 380 K/uL (130-400); RDW Coefficient of Variation 13.3 % (11.5-14.5); RDW Standard Deviation 43.4 fL (36.4-46.3); Red Blood Count 5.59 M/uL (4.70-6.10)
[2024-06-15 17:30] LABS: iSTAT Creatinine 1.4 mg/dl (0.6-1.3); iSTAT Ionized Calcium 1.15 mmol/l (1.12-1.32); iSTAT Potassium 3.9 mmol/L (3.3-5.0)
[2024-06-15 17:30] LABS: iSTAT Arterial Blood Gas HCO3 22 meg/L (19-24); iSTAT Arterial Blood Gas pCO2 35 mmHg (35-46); iSTAT Arterial Blood Gas pO2 139 mmHg (80-95); iSTAT Carbon Dioxide 23 mmol/L (24-31); iSTAT Hematocrit 46 % (42-52); iSTAT Hemoglobin 15.6 g/dl (14.0-18.0); iSTAT Potassium 3.8 mmol/L (3.3-5.0); iSTAT Sodium 139 mmol/L (135-144)
[2024-06-15 17:39] LABS: Salicylate 22.7 mg/dl (3.0-30)
[2024-06-15] MEDS: NALOXONE HCL 0.4 MG/1 ML VIAL/CARP ONE (17:42)
[2024-06-15] MEDS: RAPID SEQUENCE INDUCTION BAG ONE (17:42)
[2024-06-15 17:51] LABS: Albumin Globulin Ratio 1.5 (0.9-2); Albumin Level 4.7 gm/dl (3.4-5.0); BUN Creatinine Ratio 13.2 (10-20); Bilirubin,Total 0.4 mg/dl (0.2-1.0); Calcium 9.6 mg/dl (8.6-10.3); Creatinine Clr Calc Pharmacy 84.4 ml/min; Globulin 3.1 gm/dl (2.5-4.0); Magnesium 2.2 mg/dl (1.7-2.4); Potassium 3.9 mmol/L (3.5-5.1); Total Protein 7.8 gm/dl (6.0-8.3)
[2024-06-15 17:52] LABS: Prothrombin Time 10.7 Seconds (9.0-12.0)
--- NOTE | 2024-06-15 17:53 | CT Scan Report ---
EXAM: CT Head Without Intravenous Contrast INDICATION: Overdose. TECHNIQUE: Axial computed tomography images of the head/brain without intravenous contrast. Sagittal and/or coronal reformats are provided. Sagittal and coronal reformatted images were created and reviewed. This CT exam was performed using one or more of the following dose reduction techniques: automated exposure control, adjustment of the mA and/or kV according to patient size, and/or use of iterative reconstruction technique. COMPARISON: 11/07/2018 FINDINGS: Limitations: None. Brain and extra-axial spaces: No abnormality noted. No hemorrhage. No significant white matter disease. No edema. No ventriculomegaly. No change calcified choroid right fourth ventricle. Bones/joints: No acute changes. Soft tissues: No significant abnormality noted. Vasculature: No acute abnormality noted. Sinuses: No layering fluid in the visualized portions of the paranasal sinuses. Mastoid air cells: No mastoid effusion. Orbits: No significant abnormality noted. IMPRESSION: No acute abnormality noted. ACT 112: Negative or not required by law. Electronically signed by Bruna Reese 06-15-2024 5:53 PM
[2024-06-15 17:57] LABS: Troponin I High Sensitivity 4.2 pg/ml (0-20)
[2024-06-15 18:03] LABS: Appearance Urine Turbid (Clear); Bacteria Urine Automated None Seen (None Seen); Bilirubin Urine Negative (Negative); Blood Urine 1+ (Negative); Cast Urine Automated 0-2 /lpf (0-2); Color Urine Dark Yellow; Epithelial Cell Urine Auto 0-2 /hpf (0-2); Glucose Urine UA Negative (Negative); Ketones Urine Trace (Negative); Leukocyte Esterase Urine Negative (Negative); Nitrite Urine Negative (Negative); Protein Urine Trace (Negative); Specific Gravity Urine 1.036 (1.000-1.030); Urobilinogen Urine Negative (Negative); WBC Urine Automated 0-5 /hpf (0-5)
[2024-06-15 18:10] LABS: Amorphous Sediment Urine Present (None Prsent)
--- NOTE | 2024-06-15 18:20 | XRay Report ---
EXAM: Radiograph of the Chest 1 View INDICATION: Altered mental status. TECHNIQUE: Frontal view of the chest. COMPARISON: 08/13/2020 FINDINGS: Lungs and pleural spaces: Shallow inspiration with mild scarring and crowding of the bronchovascular structures in the lung bases. No consolidation or pulmonary edema. No pleural effusion or pneumothorax. Heart: Stable large cardiac shadow. Mediastinum: Normal contour. Bones/joints: No fracture, erosion or dislocation. Soft tissues: No abnormality noted. No radiopaque foreign body noted. Upper abdomen: No abnormality noted. IMPRESSION: No acute cardiopulmonary disease. ACT 112: Negative or not required by law. Electronically signed by Bruna Reese 06-15-2024 6:20 PM
[2024-06-15 18:23] LABS: Amphetamines+Metham, Urine Neg (Neg); Barbiturates, Urine Neg (Neg); Benzodiazepine, Urine Neg (Neg); Cocaine, Urine Neg (Neg); Fentanyl, Urine Neg (Neg); MDMA (Ecstacy), Urine Pos (Neg); Marijuana, Urine Neg (Neg); Methadone, Urine Neg (Neg); Opiate, Urine Neg (Neg); Phencyclidine, Urine Neg (Neg)
--- NOTE | 2024-06-15 22:16 | Emergency Department Note ---
Impression & Plan Intentional overdose, Suicidal ideation, Unresponsive episode ED Provider Note ED Provider Note NAME: BANDAR CARLOS AGE:43 SEX: Male : 1980 ARRIVES VIA: EMS INFORMANT: EMS ED PROVIDER(s): Fatmata Hernandez DO CHIEF COMPLAINT: Unresponsive, overdose HPI: This is a 43-year-old male presents emergency department via EMS after being found unresponsive by family who went to check on him. Patient had sent text messages suggesting he was having thoughts of harming himself which is why family went to check on him. He recently dealt with the loss of a friend who committed suicide. No prior history of mental illness or suicide attempt. EMS reports they did fine bottles of hydrocodone on scene as well as meloxicam. There was also suspicion that he may have consumed alcohol. EMS reports patient was unresponsive to painful stimuli although was breathing on his own. He was placed on oxygen via nasal cannula and did maintain his oxygen saturations. They did not find any evidence of trauma, blood pressure and heart rate stable throughout. They did give the patient a total of 1.2 mg of Narcan and route without any response or improvement. He was given IV fluids en route. No seizure-like activity noted. No ectopy or dysrhythmia noted. On arrival here patient unresponsive to painful stimuli. No evidence of trauma on exams. PAST MEDICAL HISTORY:See Below PAST SURGICAL HISTORY:See Below FAMILY HISTORY:See Below SOCIAL HISTORY:See Below HOME MEDICATIONS:See Below ALLERGIES:See Below VITALS:See Below PHYSICAL EXAMINATION: GENERAL:well appearing, well nourished, no distress, non-toxic EYE EXAM: normal conjunctiva, PERRL and EOM's grossly intact OROPHARYNX: no exudate, no erythema, lips, buccal mucosa, and tongue normal and mucous membranes are dry NECK: supple, no nuchal rigidity, no adenopathy, non-tender LUNGS: Clear to auscultation. Normal chest wall mechanics, no w/r/r HEART: no murmurs, S1 normal and S2 normal ABDOMEN: abdomen soft, non-tender, normo-active bowel sounds, no masses, no rebound or guarding. BACK: Back is symmetrical on inspection and there is no deformity, no midline tenderness, no CVA tenderness. SKIN: no rashes, petechiae, orbruising UPPER EXTREMITIES: upper extremities are grossly normal. FROM, nml pulses b/l. LOWER EXTREMITIES: No pitting edema. FROM, nml pulses b/l. NEURO EXAM: Does not respond to painful stimuli although will wince but does not attempt to localize, will not open eyes or respond verbally Vital Signs: reviewed and remarkable Differential Diagnosis: Overdose, toxicologic, infection, hypoglycemia, electrolyte abnormalities, ICH, CVA, SHITAL, dysrhythmia, ACS, dissection, seizure, as well as other pathologies. MEDICAL DECISION MAKING: This is a 43-year-old male who presents to the emergency department after an intentional overdose. Patient afebrile and hemodynamically stable on arrival. His level of consciousness did improve with additional IV Narcan. He was given IV fluids. Labs drawn and sent, a second IV established, EKG and chest x-ray performed at bedside interpreted me and patient monitored on telemetry. Patient sent for CT of the head additionally. Patient did awaken admit to an intentional overdose. 302 petition filled out by case management who spoke with the patient's parents additionally. Patient's labs and imaging reassuring. Patient observed on telemetry for several hours and a repeat Tylenol level sent and was downtrending. I did contact poison control to discuss the case in anticipation of medical clearance however due to unknown time of ingestion they requested repeat labs and initiation of Acetadote protocol. Patient had no new or evolving symptoms and monitored in the emergency department and continued to state he felt mildly sleepy but otherwise well. Case discussed with the hospitalist team additionally. Consultation(s): 1735: Discussed with case management who will discuss the events today with parents who arrived to the ER. 2245: Discussed with poison control. Recommend repeat labs and recommend IV Acetadote if definitive time of ingestion cannot be pinpointed. 2349: Case discussed with Dr. Ferrara, [facility] hospitalist team, for additional evaluation and management. ER Treatment Provided: See below 1758: Patient now awake, talking, follows commands. He states he was feeling really bad and overdosed with the hope of not waking up. He states he took half a bottle of Tylenol and 5 tablets of oxycodone and also consumed alcohol but could not quantify this. He denies any thoughts of wanting to hurt someone else. He denies any prior suicide attempt. Diagnostics Interpreted By Me: -ECG: Normal sinus at 88, normal axis, normal intervals, no acute ST/T wave changes -Cardiac Monitoring: An order was placed for continuous cardiac monitoring. The monitor shows a rate of 102 with sinus tachycardia rhythm. -Laboratory studies: As stated above and show below. -Imaging studies: X-ray Chest: A single view study of the chest was reviewed and was negative for cardiomegaly, focal infiltrate, effusion, pulmonary edema, or wide mediastinum. Triage Nursing Note Reviewed Prior/Outside Records Reviewed Critical Care: Critical care of 42 min performed to assess and manage high likelihood of life-threatening intentional overdose, involving labs and imaging performed with assessment to evaluate overdose diagnosis with frequent reassessment. This time includes bedside time, treatment discussions with patient/family/consultants, documentation time and excludes procedure time. Past Med/Surg History Problem List SHITAL (acute kidney injury) Salicylate intoxication Tylenol ingestion Leukocytosis Unresponsive episode (Acute) Suicidal ideation (Acute) Intentional overdose (Acute) Shoulder blade pain DVT prophylaxis Hypoxia (Acute) SOB (shortness of breath) (Acute) COVID-19 (Acute) Pneumonia (Acute) Bacterial pneumonia Sepsis Acute respiratory failure with hypoxia Pneumonia due to 2019-nCoV (Acute) Suspected 2019 novel coronavirus infection Right inguinal pain (Acute) Chronic back pain (Chronic) Impaired fasting glucose (Chronic) Anxiety (Chronic) Attention deficit hyperactivity disorder (ADHD) (Chronic) Learning disability (Chronic) Medical History Anxiety Attention deficit hyperactivity disorder (ADHD) Chronic back pain Impaired fasting glucose Learning disability Nephrolithiasis Surgical History H/O umbilical hernia repair (06/22/19) Laparoscopic Right Inguinal Hernia Repair with Mesh Open Umbilical Hernia Repair Dr. Whiting 06-22-19 H/O vasectomy History of foot surgery BILAT X4 TOTAL FOR FLAT FEET Hx of inguinal hernia surgery (06/22/19) Laparoscopic Right Inguinal Hernia Repair with Mesh(Right) Open Umbilical Hernia Repair Dr. Whiting 06/22/19 Family History Grandfather (Paternal) Congenital pes planus Grandmother (Maternal) Diabetes Sister Kidney stones Social History (Updated 05/05/24 @ 09:05 by Lynn Mcmillan LPN) Smoking Status: Unknown if ever smoked Second Hand Exposure: Yes (PARENTS); Do You Dip or Chew Tobacco: No; Hx Alcohol Use: No Hx Substance Use: No Preferred Language: Monegasque Communication Ability: Effective Visual Impairment: No Limitations Hearing Ability: Normal Director Of [employer] Required: No Beliefs That Will Affect Care: None marital status: Single Current Living Situation: Alone current occupational status: employed 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 [employer] Feels Safe at Home: Yes Safety Concerns: Feels Safe At This Time Dental Care, Regularly: Yes Gender Identity: Male Assistive Devices: None Allergies Allergies Allergy/AdvReac Type Severity Reaction Status Date / Time bee venom protein (honey bee) Allergy Mild SWELLING Verified 06/15/24 19:36 Home Meds Home Medications Medication Instructions Recorded Confirmed No Known Home Medications 05/05/24 06/15/24 Results & Data (ED) Vital Signs Vital Signs - 24 hr 06/15/24 23:03 06/15/24 23:18 Pulse Rate 119 H 86 Pulse Rate from SpO2 Sensor 118 H Pulse Rhythm Regular Respiratory Rate 23 16 Blood Pressure 126/92 Blood Pressure Mean 103 Pulse Oximetry 95 94 Oxygen Delivery Method Room Air Room Air Laboratory Data 06/16/24 05:36 06/16/24 20:10 Lab Results 06/15/24 06/15/24 06/15/24 Range/Units 17:08 17:09 17:13 WBC 12.20 H (4.8-10.8) K/ul RBC 5.59 (4.70-6.10) M/uL Hgb 17.2 (14.0-18.0) g/dl POC Hgb 17.0 (14.0-18.0) g/dl Hct 49.7 (42.0-52.0) % POC Hct 50 (42-52) % MCV 88.9 (80.0-100.0) fL MCH 30.8 (25.0-34.0) pg MCHC 34.6 (32.0-36.0) g/dL RDW Std Deviation 43.4 (36.4-46.3) fL RDW Coeff of María 13.3 (11.5-14.5) % Plt Count 380 (130-400) K/uL MPV 9.6 (9.4-12.4) fL Immature Gran % (Auto) 0.5 % Neut % (Auto) 73.2 % Lymph % (Auto) 18.3 % [place] % (Auto) 7.2 % Eos % (Auto) 0.5 % Baso % (Auto) 0.3 % Neut # (Auto) 8.93 H (1.40-6.50) K/uL Lymph # (Auto) 2.23 (1.20-3.40) K/uL [place] # (Auto) 0.88 H (0.11-0.59) K/uL Eos # (Auto) 0.06 (0.00-0.50) K/uL Baso # (Auto) 0.04 (0.00-0.20) K/uL Immature Gran # (Auto) 0.06 (0.01-0.20) K/uL PT 10.7 (9.0-12.0) Seconds INR 1.0 (0.9-1.1) POC pH (7.35-7.45) POC pCO2 (35-46) mmHg POC pO2 (80-95) mmHg POC HCO3 (19-24) awais/L POC Base Excess (-9-1.8) awais/L POC ABG O2 Sat (90-95) % POC Sodium 141 (135-144) mmol/L Sodium 140 (136-145) mmol/L POC Potassium 3.9 (3.3-5.0) mmol/L Potassium 3.9 (3.5-5.1) mmol/L POC Chloride 109 (101-112) mmol/L Chloride 106 (98-107) mmol/L Carbon Dioxide 22 (21-32) mmol/L POC Total CO2 20 L (24-31) mmol/L Anion Gap 12 H (3-11) POC Anion Gap 17.0 (16-25) mmol/L POC BUN 18 (7-18) mg/dl BUN 18 (6-23) mg/dl Creatinine 1.36 (0.6-1.4) mg/dl POC Creatinine 1.4 H (0.6-1.3) mg/dl Est Cr Clr Drug Dosing 84.4 ml/min eGFR 66.22 BUN/Creatinine Ratio 13.2 (10-20) Glucose 120 H (70-99(Fasting)) mg/dl POC Glucose 107 H (70-99) mg/dl POC Glucose (other) 119 H (70-99) mg/dl Calcium 9.6 (8.6-10.3) mg/dl POC Ioniz Calcium Florian 1.15 (1.12-1.32) mmol/l Magnesium 2.2 (1.7-2.4) mg/dl Total Bilirubin 0.4 (0.2-1.0) mg/dl AST 15 (13-39) U/L ALT 19 (7-52) U/L Alkaline Phosphatase 92 (34-104) U/L Total Creatine Kinase 54 (30-223) U/L Troponin I High Sens 4.2 (0-20) pg/ml Total Protein 7.8 (6.0-8.3) gm/dl Albumin 4.7 (3.4-5.0) gm/dl Globulin 3.1 (2.5-4.0) gm/dl Albumin/Globulin Ratio 1.5 (0.9-2) Lipase 46 (11-82) U/L Urine Color Urine Appearance (Clear) Urine pH (4.5-7.5) Ur Specific [place] (1.000-1.030) Urine Protein (Negative) Urine Glucose (UA) (Negative) Urine Ketones (Negative) Urine Blood (Negative) Urine Nitrite (Negative) Urine Bilirubin (Negative) Urine Urobilinogen (Negative) Ur Leukocyte Esterase (Negative) Urine WBC (Auto) (0-5) /hpf Urine RBC (Auto) (0-2) /hpf U Hyaline Cast (Auto) (0-2) /lpf U Epithel Cells (Auto) (0-2) /hpf Urine Bacteria (Auto) (None Seen) Amorphous Sediment (None Prsent) Salicylates 22.7 (3.0-30) mg/dl Urine Opiates Screen (Neg) Ur Methadone, Qual (Neg) Urine Fentanyl Screen (Neg) Acetaminophen 11 (10-30) ug/ml Urine Barbiturates (Neg) Ur Phencyclidine (PCP) (Neg) U Amphetamin/Meth Scrn (Neg) MDMA (Ecstasy) Screen (Neg) U Benzodiazepines Scrn (Neg) Ur Cocaine Metabolite (Neg) U Marijuana (THC) Screen (Neg) Ethyl Alcohol mg/dL < 10.0 (<10.0) mg/dl 06/15/24 06/15/24 06/15/24 Range/Units 17:17 17:44 21:24 WBC (4.8-10.8) K/ul RBC (4.70-6.10) M/uL Hgb (14.0-18.0) g/dl POC Hgb 15.6 (14.0-18.0) g/dl Hct (42.0-52.0) % POC Hct 46 (42-52) % MCV (80.0-100.0) fL MCH (25.0-34.0) pg MCHC (32.0-36.0) g/dL RDW Std Deviation (36.4-46.3) fL RDW Coeff of María (11.5-14.5) % Plt Count (130-400) K/uL MPV (9.4-12.4) fL Immature Gran % (Auto) % Neut % (Auto) % Lymph % (Auto) % [place] % (Auto) % Eos % (Auto) % Baso % (Auto) % Neut # (Auto) (1.40-6.50) K/uL Lymph # (Auto) (1.20-3.40) K/uL [place] # (Auto) (0.11-0.59) K/uL Eos # (Auto) (0.00-0.50) K/uL Baso # (Auto) (0.00-0.20) K/uL Immature Gran # (Auto) (0.01-0.20) K/uL PT (9.0-12.0) Seconds INR (0.9-1.1) POC pH 7.40 (7.35-7.45) POC pCO2 35 (35-46) mmHg POC pO2 139 H (80-95) mmHg POC HCO3 22 (19-24) awais/L POC Base Excess -3.0 (-9-1.8) awais/L POC ABG O2 Sat 99.0 H (90-95) % POC Sodium 139 (135-144) mmol/L Sodium (136-145) mmol/L POC Potassium 3.8 (3.3-5.0) mmol/L Potassium (3.5-5.1) mmol/L POC Chloride (101-112) mmol/L Chloride (98-107) mmol/L Carbon Dioxide (21-32) mmol/L POC Total CO2 23 L (24-31) mmol/L Anion Gap (3-11) POC Anion Gap (16-25) mmol/L POC BUN (7-18) mg/dl BUN (6-23) mg/dl Creatinine (0.6-1.4) mg/dl POC Creatinine (0.6-1.3) mg/dl Est Cr Clr Drug Dosing ml/min eGFR BUN/Creatinine Ratio (10-20) Glucose (70-99(Fasting)) mg/dl POC Glucose (70-99) mg/dl POC Glucose (other) (70-99) mg/dl Calcium (8.6-10.3) mg/dl POC Ioniz Calcium Florian (1.12-1.32) mmol/l Magnesium (1.7-2.4) mg/dl Total Bilirubin (0.2-1.0) mg/dl AST (13-39) U/L ALT (7-52) U/L Alkaline Phosphatase (34-104) U/L Total Creatine Kinase (30-223) U/L Troponin I High Sens (0-20) pg/ml Total Protein (6.0-8.3) gm/dl Albumin (3.4-5.0) gm/dl Globulin (2.5-4.0) gm/dl Albumin/Globulin Ratio (0.9-2) Lipase (11-82) U/L Urine Color Dark Yellow Urine Appearance Turbid A (Clear) Urine pH 5.0 (4.5-7.5) Ur Specific [place] 1.036 H (1.000-1.030) Urine Protein Trace H (Negative) Urine Glucose (UA) Negative (Negative) Urine Ketones Trace H (Negative) Urine Blood 1+ H (Negative) Urine Nitrite Negative (Negative) Urine Bilirubin Negative (Negative) Urine Urobilinogen Negative (Negative) Ur Leukocyte Esterase Negative (Negative) Urine WBC (Auto) 0-5 (0-5) /hpf Urine RBC (Auto) 11-20 H (0-2) /hpf U Hyaline Cast (Auto) 0-2 (0-2) /lpf U Epithel Cells (Auto) 0-2 (0-2) /hpf Urine Bacteria (Auto) None Seen (None Seen) Amorphous Sediment Present A (None Prsent) Salicylates (3.0-30) mg/dl Urine Opiates Screen Neg (Neg) Ur Methadone, Qual Neg (Neg) Urine Fentanyl Screen Neg (Neg) Acetaminophen 10 (10-30) ug/ml Urine Barbiturates Neg (Neg) Ur Phencyclidine (PCP) Neg (Neg) U Amphetamin/Meth Scrn Neg (Neg) MDMA (Ecstasy) Screen Pos H (Neg) U Benzodiazepines Scrn Neg (Neg) Ur Cocaine Metabolite Neg (Neg) U Marijuana (THC) Screen Neg (Neg) Ethyl Alcohol mg/dL (<10.0) mg/dl 06/15/24 06/15/24 Range/Units 22:55 22:56 WBC (4.8-10.8) K/ul RBC (4.70-6.10) M/uL Hgb (14.0-18.0) g/dl POC Hgb (14.0-18.0) g/dl Hct (42.0-52.0) % POC Hct (42-52) % MCV (80.0-100.0) fL MCH (25.0-34.0) pg MCHC (32.0-36.0) g/dL RDW Std Deviation (36.4-46.3) fL RDW Coeff of María (11.5-14.5) % Plt Count (130-400) K/uL MPV (9.4-12.4) fL Immature Gran % (Auto) % Neut % (Auto) % Lymph % (Auto) % [place] % (Auto) % Eos % (Auto) % Baso % (Auto) % Neut # (Auto) (1.40-6.50) K/uL Lymph # (Auto) (1.20-3.40) K/uL [place] # (Auto) (0.11-0.59) K/uL Eos # (Auto) (0.00-0.50) K/uL Baso # (Auto) (0.00-0.20) K/uL Immature Gran # (Auto) (0.01-0.20) K/uL PT (9.0-12.0) Seconds INR (0.9-1.1) POC pH (7.35-7.45) POC pCO2 (35-46) mmHg POC pO2 (80-95) mmHg POC HCO3 (19-24) awais/L POC Base Excess (-9-1.8) awais/L POC ABG O2 Sat (90-95) % POC Sodium (135-144) mmol/L Sodium 141 (136-145) mmol/L POC Potassium (3.3-5.0) mmol/L Potassium 4.1 (3.5-5.1) mmol/L POC Chloride (101-112) mmol/L Chloride 109 H (98-107) mmol/L Carbon Dioxide 23 (21-32) mmol/L POC Total CO2 (24-31) mmol/L Anion Gap 9 (3-11) POC Anion Gap (16-25) mmol/L POC BUN (7-18) mg/dl BUN 16 (6-23) mg/dl Creatinine 1.36 (0.6-1.4) mg/dl POC Creatinine (0.6-1.3) mg/dl Est Cr Clr Drug Dosing 84.4 ml/min eGFR 66.22 BUN/Creatinine Ratio 11.8 (10-20) Glucose 91 (70-99(Fasting)) mg/dl POC Glucose (70-99) mg/dl POC Glucose (other) (70-99) mg/dl Calcium 8.4 L (8.6-10.3) mg/dl POC Ioniz Calcium Florian (1.12-1.32) mmol/l Magnesium (1.7-2.4) mg/dl Total Bilirubin 0.4 (0.2-1.0) mg/dl AST 42 H (13-39) U/L ALT 29 (7-52) U/L Alkaline Phosphatase 79 (34-104) U/L Total Creatine Kinase (30-223) U/L Troponin I High Sens (0-20) pg/ml Total Protein 6.5 (6.0-8.3) gm/dl Albumin 4.0 (3.4-5.0) gm/dl Globulin 2.5 (2.5-4.0) gm/dl Albumin/Globulin Ratio 1.6 (0.9-2) Lipase (11-82) U/L Urine Color Urine Appearance (Clear) Urine pH (4.5-7.5) Ur Specific [place] (1.000-1.030) Urine Protein (Negative) Urine Glucose (UA) (Negative) Urine Ketones (Negative) Urine Blood (Negative) Urine Nitrite (Negative) Urine Bilirubin (Negative) Urine Urobilinogen (Negative) Ur Leukocyte Esterase (Negative) Urine WBC (Auto) (0-5) /hpf Urine RBC (Auto) (0-2) /hpf U Hyaline Cast (Auto) (0-2) /lpf U Epithel Cells (Auto) (0-2) /hpf Urine Bacteria (Auto) (None Seen) Amorphous Sediment (None Prsent) Salicylates 27.5 (3.0-30) mg/dl Urine Opiates Screen (Neg) Ur Methadone, Qual (Neg) Urine Fentanyl Screen (Neg) Acetaminophen 7 L (10-30) ug/ml Urine Barbiturates (Neg) Ur Phencyclidine (PCP) (Neg) U Amphetamin/Meth Scrn (Neg) MDMA (Ecstasy) Screen (Neg) U Benzodiazepines Scrn (Neg) Ur Cocaine Metabolite (Neg) U Marijuana (THC) Screen (Neg) Ethyl Alcohol mg/dL (<10.0) mg/dl Administered Medications Hydralazine HCl (Hydralazine Hcl 20 Mg/Ml Vial) 10 mg IV Q8 PRN PRN Reason: sbp>185 or dbp>95 Stop: 07/16/24 10:04 Last Admin: 06/16/24 10:27 Dose: 10 mg Documented By: WMK Sodium Chloride (Nss) 1,000 mls @ 125 mls/hr IV .Q8H MARILOU Stop: 06/17/24 17:29 Last Admin: 06/16/24 17:39 Dose: 125 mls/hr Documented By: AMS Melatonin (Melatonin 3 Mg Tab) 3 mg PO HS PRN PRN Reason: Sleep Stop: 07/16/24 22:02 Last Admin: 06/16/24 22:17 Dose: 3 mg Documented By: [facility] Ondansetron HCl (Ondansetron Inj 2 Mg/Ml 2 Ml Vial) 4 mg IV Q6H PRN PRN Reason: Nausea And Vomiting Stop: 07/16/24 01:48 Last Admin: 06/16/24 03:32 Dose: 4 mg Documented By: Discontinued Medications Acetylcysteine (Acetylcysteine Iv 21 Hr Regimen (>40kg)) 1 each IV NOW STA; Protocol Stop: 06/15/24 23:15 Last Admin: 06/15/24 23:44 Dose: Not Given Documented By: ASW Sodium Chloride (Nss) 1,000 mls @ 125 mls/hr IV .Q8H MARILOU Stop: 06/16/24 17:14 Last Infusion: 06/16/24 17:52 Dose: Infused Documented By: Admin: 06/16/24 09:35 Dose: 125 mls/hr Documented By: Infusion: 06/16/24 09:12 Dose: Infused Documented By: Admin: 06/16/24 01:12 Dose: 125 mls/hr Documented By: Infusion: 06/15/24 23:45 Dose: Infused Documented By: Admin: 06/15/24 17:10 Dose: 125 mls/hr Documented By: ELIZABETH Acetylcysteine 14,490 mg/ (Dextrose) 272.45 mls @ 200 mls/hr IV ONCE ONE; Protocol Stop: 06/16/24 00:35 Last Infusion: 06/16/24 01:15 Dose: Infused Documented By: Admin: 06/15/24 23:44 Dose: 200 mls/hr Documented By: ALKA Acetylcysteine 4,830 mg/ (Dextrose) 524.15 mls @ 125 mls/hr IV ONCE ONE; Protocol Stop: 06/16/24 04:25 Last Infusion: 06/16/24 06:14 Dose: Infused Documented By: Admin: 06/16/24 01:12 Dose: 125 mls/hr Documented By: ALKA Acetylcysteine 9,660 mg/ (Dextrose) 1,048.3 mls @ 62.5 mls/hr IV ONCE ONE; Protocol Stop: 06/16/24 21:00 Last Admin: 06/16/24 06:10 Dose: 62.5 mls/hr Documented By: CTK Sodium Bicarbonate 150 meq/ (Dextrose) 1,150 mls @ 100 mls/hr IV .[id number] [facility] Stop: 07/16/24 03:14 Last Infusion: 06/16/24 21:50 Dose: Infused Documented By: [facility] Admin: 06/16/24 15:19 Dose: 100 mls/hr Documented By: Infusion: 06/16/24 15:19 Dose: Infused Documented By: Admin: 06/16/24 03:51 Dose: 100 mls/hr Documented By: CTK Potassium Chloride (K Jim / Wtr) 10 meq in 100 mls @ 100 mls/hr IV ONE ONE Stop: 06/16/24 14:06 Last Infusion: 06/16/24 14:59 Dose: Infused Documented By: Admin: 06/16/24 13:53 Dose: 100 mls/hr Documented By: JANA Potassium Chloride (K Jim / Wtr) 10 meq in 100 mls @ 100 mls/hr IV Q1H MARILOU Stop: 06/16/24 19:44 Last Infusion: 06/16/24 20:00 Dose: Infused Documented By: [facility] Admin: 06/16/24 18:40 Dose: 100 mls/hr Documented By: Infusion: 06/16/24 18:40 Dose: Infused Documented By: Admin: 06/16/24 17:40 Dose: 100 mls/hr Documented By: JANA Miscellaneous (Rapid Sequence Induction Bag) Confirm Administered Dose 1 each N/A .STK-MED ONE Stop: 06/15/24 16:56 Last Admin: 06/15/24 17:42 Dose: Not Given Documented By: ELIZABETH Miscellaneous (Stat Iv/Im) 1 each N/A NOW STA Stop: 06/15/24 23:15 Last Admin: 06/15/24 23:44 Dose: Not Given Documented By: ALKA Naloxone HCl (Naloxone Hcl 0.4 Mg/1 Ml Vial/Carp) Confirm Administered Dose 0.8 mg .ROUTE .STK-MED ONE Stop: 06/15/24 17:07 Last Admin: 06/15/24 17:42 Dose: Not Given Documented By: ELIZABETH Naloxone HCl (Naloxone Hcl 0.4 Mg/1 Ml Vial/Carp) 0.4 mg IV NOW STA Stop: 06/15/24 17:09 Last Admin: 06/15/24 17:11 Dose: 0.4 mg Documented By: ELIZABETH Imaging Data Radiologist's Impression: Chest X-Ray 06/15/24 17:09 EXAM: Radiograph of the Chest 1 View INDICATION: Altered mental status. TECHNIQUE: Frontal view of the chest. COMPARISON: 08/13/2020 FINDINGS: Lungs and pleural spaces: Shallow inspiration with mild scarring and crowding of the bronchovascular structures in the lung bases. No consolidation or pulmonary edema. No pleural effusion or pneumothorax. Heart: Stable large cardiac shadow. Mediastinum: Normal contour. Bones/joints: No fracture, erosion or dislocation. Soft tissues: No abnormality noted. No radiopaque foreign body noted. Upper abdomen: No abnormality noted. IMPRESSION: No acute cardiopulmonary disease. ACT 112: Negative or not required by law. Electronically signed by Bruna Reese 06-15-2024 6:[address] 06/15/24 17:09 EXAM: CT Head Without Intravenous Contrast INDICATION: Overdose. TECHNIQUE: Axial computed tomography images of the head/brain without intravenous contrast. Sagittal and/or coronal reformats are provided. Sagittal and coronal reformatted images were created and reviewed. This CT exam was performed using one or more of the following dose reduction techniques: automated exposure control, adjustment of the mA and/or kV according to patient size, and/or use of iterative reconstruction technique. COMPARISON: 11/07/2018 FINDINGS: Limitations: None. Brain and extra-axial spaces: No abnormality noted. No hemorrhage. No significant white matter disease. No edema. No ventriculomegaly. No change calcified choroid right fourth ventricle. Bones/joints: No acute changes. Soft tissues: No significant abnormality noted. Vasculature: No acute abnormality noted. Sinuses: No layering fluid in the visualized portions of the paranasal sinuses. Mastoid air cells: No mastoid effusion. Orbits: No significant abnormality noted. IMPRESSION: No acute abnormality noted. ACT 112: Negative or not required by law. Electronically signed by Bruna Reese 06-15-2024 5:53 PM Discharge Plan Visit Data Chief Complaint: Overdose (Intentional) Stated Complaint: OVERDOSE, ED Provider: Fatmata Hernandez Discharge Problem: Intentional overdose, Suicidal ideation, Unresponsive episode Patient Disposition: Admitted As Inpatient Discharge Instructions Interventions: ED Discharge Assessment Last Done: 06/16/24 08:53
--- NOTE | 2024-06-15 23:24 | History & Physical Report ---
Date of Service June 15, 2024 Assessment & Plan (1) Intentional overdose: (2) Suicidal ideation: (3) Unresponsive episode: (4) Tylenol ingestion: (5) Salicylate intoxication: (6) SHITAL (acute kidney injury): (7) Leukocytosis: Plan Patient is a 43-year-old male with pmhx of sepsis secondary to COVID in 2020 and chronic back pain. that presented to the ED due to an intentional overdose. Patient endorses taking half a bottle of either aspirin or Tylenol, 4-5 oxycodone, and 1-2 shots of alcohol. He endorses continued thoughts of suicidal ideation and self-harm; one-to-one ordered. ED provider opened case with poison control who recommended IV Acetadote if time of ingestion cannot be pinpointed. NAC therapy initiated in ED. #intentional overdose/Tylenol ingestion/salicylate ingestion/suicidal ideation/unresponsive episode no significant past medical history or previous suicide attempts found unresponsive by EMS and given 1.2 Mg of Narcan Patient responsive to verbal stimuli on admission head CT and CXR negative Blood gas WNL 7.4/35/139/22 - defer need for end tidal CO2 monitoring on admission Electrolytes and liver function stable MDMA positive on UDS, not on Wellbutrin at home, further MDMA studies pending - false positive? salicylate and Tylenol unlikely to cause salicylate level 22.7 -> 27.5 - at risk for mixed respiratory alkalosis-metabolic acidosis acetaminophen level 11, to 7 after NAC therapy initiated in ED 1-1 ordered Psychiatry consulted AM CMP, CBC, Mg, VBG, phosphorus repeat CMP and INR at 1200 06/16 Q2H - salicylate level no need for further acetaminophen levels oxygen prn for O2 < 94% #SHITAL likely 2/2 medication ingestion above Cr increased from 0.81 to 1.36, BUN stable 16 UA - elevated specific gravity, trace protein, trace ketones, trace blood, amorphous sediment present IVF with NSS at 125 ml/hr trend renal function #leukocytosis WBC 12.20 with neutrophil predominance suspect 2/2 OD above trend CBC VTE ppx: SCDs Diet: safe tray Dispo: PCU Poison control - if salicylate levels increased to greater than 30 then start patient on 2 A of bicarb at 150 and continue bicarb until salicylate less than 30. Would need 2 IV lines as NAC and bicarb cannot go into same line. If need to start on bicarb trend K+ and pH every 2 hours with salicylate levels. Call immediately if patient requires intubation. Admission and Anticipated Discharge Date Admission Date: 06/16/24 History of Present Illness Chief Complaint: Intentional overdose Primary Care Provider: Jasson Cochran MD Patient is a 43-year-old male with pmhx of sepsis secondary to COVID in 2020 and chronic back pain. that presented to the ED due to an intentional overdose. Patient endorses taking half a bottle of either aspirin or Tylenol, 4-5 oxycodone, and 1-2 shots of alcohol. He endorses continued thoughts of suicidal ideation and self-harm; one-to-one ordered. Patient seen at bedside, he is lethargic but responds to verbal stimuli. He stated he attempted suicide earlier today but did not want to talk about why. ED note stated that patient was upset regarding his suicide of a friend. The patient texted goodbye to his father who then arrived at the patient's residence and called EMS. It was noted the patient received 1.2 Mg of Narcan en route due to unresponsiveness. Patient was found to have a Tylenol level of 10 so was started on NAC therapy. He also tested positive on MDMA screening. Patient stated that he does not take any medications daily at baseline and denies any psychiatric history. Patient denies dizziness, lightheadedness, dyspnea, chest pain, abdominal pain, nausea, numbness, tingling. He denies history of COPD or asthma. Did not assess patient's CODE STATUS as still having suicidal thoughts and stated that he "does not want to be here anymore". Spoke with patient control center. They recommend salicylate levels every 2 hours and no need for further acetaminophen levels. They recommend repeat liver function test and INR 12 hours after NAC initiated. They stated if salicylate levels increased to greater than 30 then start patient on 2 A of bicarb at 150 and continue bicarb until salicylate less than 30. Would need 2 IV lines as NAC and bicarb cannot go into same line. If need to start on bicarb trend K+ and pH every 2 hours with salicylate levels. Questionable concern for meloxicam ingestion as noted by EMS, possibly contributing to SHITAL however trend renal function and continue with IV fluids. If patient needs intubated please call poison control center immediately. Allergies Allergy/AdvReac Type Severity Reaction Status Date / Time bee venom protein (honey bee) Allergy Mild SWELLING Verified 06/15/24 19:36 Home Medications Medication Instructions Recorded Confirmed Type No Known Home Medications 05/05/24 06/15/24 History Past Med/Surg History Problem List SHITAL (acute kidney injury) Salicylate intoxication Tylenol ingestion Leukocytosis Unresponsive episode (Acute) Suicidal ideation (Acute) Intentional overdose (Acute) Shoulder blade pain DVT prophylaxis Hypoxia (Acute) SOB (shortness of breath) (Acute) COVID-19 (Acute) Pneumonia (Acute) Bacterial pneumonia Sepsis Acute respiratory failure with hypoxia Pneumonia due to 2019-nCoV (Acute) Suspected 2019 novel coronavirus infection Right inguinal pain (Acute) Chronic back pain (Chronic) Impaired fasting glucose (Chronic) Anxiety (Chronic) Attention deficit hyperactivity disorder (ADHD) (Chronic) Learning disability (Chronic) Medical History Anxiety Attention deficit hyperactivity disorder (ADHD) Chronic back pain Impaired fasting glucose Learning disability Nephrolithiasis Surgical History H/O umbilical hernia repair (06/22/19) Laparoscopic Right Inguinal Hernia Repair with Mesh Open Umbilical Hernia Repair Dr. Whiting 06-22-19 H/O vasectomy History of foot surgery BILAT X4 TOTAL FOR FLAT FEET Hx of inguinal hernia surgery (06/22/19) Laparoscopic Right Inguinal Hernia Repair with Mesh(Right) Open Umbilical Hernia Repair Dr. Whiting 06/22/19 Family History Grandfather (Paternal) Congenital pes planus Grandmother (Maternal) Diabetes Sister Kidney stones Social History (Updated 05/05/24 @ 09:05 by Lynn Mcmillan LPN) Smoking Status: Unknown if ever smoked Second Hand Exposure: Yes (PARENTS); Do You Dip or Chew Tobacco: No; Hx Alcohol Use: Yes Alcohol type: beer Hx Substance Use: No Preferred Language: Scottish Communication Ability: Effective Visual Impairment: No Limitations Hearing Ability: Normal Optical Designer Required: No Beliefs That Will Affect Care: None marital status: Single Current Living Situation: Alone current occupational status: employed 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 Non-toxic appearing. HEENT- EOMI, mucous membranes dry. Hearing grossly intact. PERRL. Heart-normal S1 and S2. No murmurs, rubs or gallops. Lungs-clear bilaterally, no respiratory distress, no accessory muscle use. Abdomen-normal bowel sounds and soft. No ascites noted. Non-tender. Extremities- no clubbing, cyanosis, or edema. Psychiatric: Affect: + flat affect Mood: + depressed mood Suicidal Thoughts: + reports suicidal thoughts Homicidal Thoughts: denies homicidal thoughts Results & Data Results & Data Vital Signs (Past 12 Hours) Vital Signs Temp Pulse Pulse Resp BP BP Pulse Ox 06/15/24 23:18 86 16 94 06/15/24 23:03 119 H 23 126/92 95 06/15/24 21:03 94 H 24 136/84 95 06/15/24 20:33 97 H 22 133/97 96 06/15/24 20:05 97 H 23 141/82 H 96 06/15/24 19:07 95 H 17 145/101 H 97 06/15/24 18:30 97 H 25 H 140/93 98 06/15/24 18:15 92 H 22 148/97 H 97 06/15/24 18:15 101 H 22 148/97 H 98 06/15/24 18:00 94 H 20 146/97 H 98 06/15/24 17:51 103 H 21 98 06/15/24 17:18 93 H 06/15/24 17:15 105 H 24 155/103 H 100 06/15/24 17:08 99 06/15/24 17:08 99 06/15/24 17:05 100 06/15/24 17:05 37.1 C 80 27 H 163/98 H 100 O2 Del Method O2 Flow Rate 06/15/24 23:18 Room Air 06/15/24 23:03 Room Air 06/15/24 21:03 Room Air 06/15/24 20:33 Room Air 06/15/24 20:05 Nasal Cannula 2 06/15/24 19:07 Nasal Cannula 2 06/15/24 18:30 06/15/24 18:15 Nasal Cannula 4 06/15/24 18:15 Nasal Cannula 4 06/15/24 18:00 Nasal Cannula 4 06/15/24 17:51 Nasal Cannula 4 06/15/24 17:18 06/15/24 17:15 Nasal Cannula 4 06/15/24 17:08 Nasal Cannula 4 06/15/24 17:08 Nasal Cannula 4 06/15/24 17:05 Nasal Cannula 4 06/15/24 17:05 Nasal Cannula 4 Laboratory Results Reviewed CBC, PT/INR, CMP, ABG, UDS, UA, troponin, mag, salicylate level, ETOH level Diagnostic Findings reviewed head ct and cxr ECG Additional Comments: ordered Code Status & VTE Plan Code Status full code; unable to assess code status as having suicidal ideation VTE Prophylaxis Plan VTE Prophylaxis will be ordered: Yes Supervising Physician Co-Signing Physician Notes Attending addendum: I have physically seen this patient, have supervised the EDWIN's activities, and agree with the H&P unless as otherwise noted. Assessment and Plan: The patient is a 43-year-old male with past medical history including sepsis secondary to COVID 19 2020, and chronic back pain. He presents to the emergency department after intentional overdose with reportedly taking half a bottle of aspirin or Tylenol, 4-5 oxycodone, and 1-2 shots of alcohol. Patient does report intentional suicidal ideation and self-harm, and was placed on one-to-one observation while in the emergency department. Poison control was recommended IV Acetadote, as per protocol, with an acetaminophen level of 11, and salicylate level of 22.7 will be monitored. Intentional overdose/acetaminophen ingestion/salicylate ingestion- Patient was initially found unresponsive in the field, brought to the emergency department by EMS. Urine drug screen with acetaminophen level 11, Salicylates 22.7, with follow-up 27.5 MDMA positive with confirmation pending Alcohol level is less than 10 Admit to monitored bed with neck therapy initiated per protocol One-to-one observation Consult psychiatry Repeating salicylate levels and serum and levels per protocol Acute kidney injury- Creatinine 1.36, with base 0.81 NSS at 125 mL/h is 1 L, recheck laboratories in a.m. Total CK added and is 54, therefore not suggestive of rhabdomyolysis, but is still at risk History of generalized anxiety disorder/ADHD/learning disability- Will be seen by psychiatry Remaining orders and notations as noted PG Care Time/CCT Total # of Minutes Spent Total Time Spent with Patient: Total time spent is greater than 50% in coordination of care (as documented) at patient's floor/unit and/or counseling patient: Coding Level of Care Code 43235 INT INP/OBS CARE 3/75MIN Diagnoses Intentional overdose T50.902A Suicidal ideation R45.851 Unresponsive episode R40.4 Tylenol ingestion T39.1X1A Salicylate intoxication T39.091A SHITAL (acute kidney injury) N17.9 Leukocytosis D72.829
[2024-06-15 23:28] LABS: Salicylate 27.5 mg/dl (3.0-30)
[2024-06-15 23:30] LABS: Albumin Globulin Ratio 1.6 (0.9-2); BUN Creatinine Ratio 11.8 (10-20); Bilirubin,Total 0.4 mg/dl (0.2-1.0); Calcium 8.4 mg/dl (8.6-10.3); Creatinine Clr Calc Pharmacy 84.4 ml/min; Globulin 2.5 gm/dl (2.5-4.0); Potassium 4.1 mmol/L (3.5-5.1); Total Protein 6.5 gm/dl (6.0-8.3)
[2024-06-15] MEDS: STAT IV/IM STA (23:44)
[2024-06-15] MEDS: AcetylCYSTEINE IV 21 HR REGIMEN (>40KG) IV STA (23:44)
[2024-06-15] MEDS: DEXTROSE 5% IV ONE (23:44)
[2024-06-15] MEDS: ACETYLCYSTEINE IV ONE (23:44)
[2024-06-16] MEDS: ACETYLCYSTEINE IV ONE ×2 (01:12→06:10)
[2024-06-16] MEDS: DEXTROSE 5% IV ONE ×2 (01:12→06:10)
[2024-06-16] MEDS ORDERED: STAT IV/IM STA (03:06)
[2024-06-16] MEDS: ONDANSETRON INJ 2 MG/ML 2 ML VIAL IV PRN (03:32)
[2024-06-16] MEDS: SODIUM BICARBONATE 8.4% 150 MEQ in DEXTROSE 5% 1,000 ML IV SCH (03:51)
[2024-06-16 04:10] LABS: Base Excess VBG -4.7 mEq/L; HCO3 VBG 20 mmol/L; Oxygen Saturation VBG 95.2 %; PCO2 VBG 33 mmHg (38-50); PO2 VBG 68 mmHg; pH VBG 7.38 (7.36-7.41)
[2024-06-16 05:48] LABS: Base Excess VBG -2.4 mEq/L; HCO3 VBG 22 mmol/L; Oxygen Saturation VBG 91.6 %; PCO2 VBG 34 mmHg (38-50); PO2 VBG 57 mmHg; pH VBG 7.41 (7.36-7.41)
[2024-06-16 05:58] LABS: Basophils # (auto) 0.03 K/uL (0.00-0.20); Basophils % (auto) 0.2 %; Eosinophils # (auto) 0.01 K/uL (0.00-0.50); Eosinophils % (auto) 0.1 %; Hematocrit (blood only) 43.4 % (42.0-52.0); Hemoglobin 14.7 g/dl (14.0-18.0); Immature Granulocytes # (auto) 0.09 K/uL (0.01-0.20); Immature Granulocytes % (auto) 0.5 %; Lymphocytes # (auto) 1.41 K/uL (1.20-3.40); Lymphocytes % (auto) 8.5 %; Mean Corpuscular Hemoglobin 29.8 pg (25.0-34.0); Mean Corpuscular Hgb Conc 33.9 g/dL (32.0-36.0); Mean Platelet Volume 9.6 fL (9.4-12.4); Monocytes # (auto) 1.15 K/uL (0.11-0.59); Monocytes % (auto) 6.9 %; Neutrophils # (auto) 13.99 K/uL (1.40-6.50); Neutrophils % (auto) 83.8 %; Platelet Count 329 K/uL (130-400); RDW Coefficient of Variation 13.7 % (11.5-14.5); RDW Standard Deviation 44.4 fL (36.4-46.3); Red Blood Count 4.93 M/uL (4.70-6.10); White Blood Count 16.68 K/ul (4.8-10.8)
[2024-06-16 06:16] LABS: Albumin Level 3.8 gm/dl (3.4-5.0); Bilirubin,Total 0.3 mg/dl (0.2-1.0); Calcium 8.1 mg/dl (8.6-10.3); Magnesium 2.3 mg/dl (1.7-2.4); Potassium 3.9 mmol/L (3.5-5.1)
[2024-06-16 06:22] LABS: Albumin Globulin Ratio 1.5 (0.9-2); BUN Creatinine Ratio 13.3 (10-20); Creatinine Clr Calc Pharmacy 95.7 ml/min; Globulin 2.6 gm/dl (2.5-4.0); Total Protein 6.4 gm/dl (6.0-8.3)
[2024-06-16 07:25] LABS: Base Excess VBG -2.8 mEq/L; HCO3 VBG 21 mmol/L; Oxygen Saturation VBG 95.3 %; PCO2 VBG 32 mmHg (38-50); PO2 VBG 70 mmHg; pH VBG 7.42 (7.36-7.41)
--- NOTE | 2024-06-16 09:42 | Hospitalist Progress Note ---
Date of Service June 16, 2024 Assessment & Plan (1) Intentional overdose: Plan: -intentional overdose/Tylenol ingestion/salicylate ingestion/suicidal ideation/unresponsive episode -IVF -f/u BMP (2) Suicidal ideation: Plan: 1-1 ordered Psychiatry consulted (3) Tylenol ingestion: Plan: -f/u levels (4) Salicylate intoxication: Plan: -f/u levels (5) SHITAL (acute kidney injury): Plan: -con't IVF -f/u BMP Plan Admission and Anticipated Discharge Date Admission Date: June 15, 2024 Subjective No events overnight. Pt feeling his fed up with living and "doesn't want to be here." Review of Systems Review of Systems: CONST: Negative for fever, body aches and chills. HENT: Negative for neck pain/stiffness, headache, congestion, sore throat, swelling. EYES: Negative for discharge/pain or vision changes. RESP: Negative for cough/hemoptysis and shortness of breath. CV: Negative chest pain, difficulty breathing, palpitations. ABD: Negative pain, nausea, vomiting. : Negative increase frequency, dysuria, blood in urine or stool. MUSC: Negative for muscle aches, edema. SKIN: Negative rash, lesions/sores. NEURO: Negative headache, dizziness, weakness. Physical Exam Physical Exam: GENERAL APPEARANCE NAD, activity normal for age, well developed/ well nourished, no cyanosis, pallor, or diaphoresis. EYES lids/conjunctiva normal. EARS/NOSE/THROAT Mucous membranes moist, nares normal, lips/teeth normal uvula midline without oral pharyngeal erythema, exudate or swelling TMs normal bilaterally. No lymphangitis/lymphedema. HEAD/NECK normocephalic atraumatic, no facial trauma, neck is supple. RESPIRATORY respiratory effort normal, speaks in full sentences, no tripod position, no accessory muscle use. Lungs clear to auscultation without rhonchi, wheezes, rales CARDIAC Regular rate and rhythm, no edema. ABDOMINAL Soft, ND/NT. No evidence of fluid wave. No pulsatile masses on exam, rebound tenderness, Saucedo sign or pain over Mcburney's point. MUSCLES/EXTREMITIES No abnormal range of motion, no swelling. SKIN Warm, pink and dry. No rashes, dermatoses, petechiae or lesions. NEUROLOGICAL Speech is clear and appropriate. Normal level of consciousness. Gait and coordination are normal. 5/5 strength in all extremities. PSYCH Normal mood and affect. Judgement/competence is appropriate Results & Data Results & Data Vital Signs (Past 12 Hours) Vital Signs Temp Pulse Pulse Resp BP BP Pulse Ox 06/16/24 08:53 114 H 20 143/102 H 95 06/16/24 07:17 36.8 C 86 20 147/92 H 98 06/16/24 01:52 06/16/24 01:52 86 19 94 06/16/24 01:15 78 17 149/87 H 94 06/15/24 23:49 79 19 131/93 94 06/15/24 23:18 86 16 94 06/15/24 23:03 119 H 23 126/92 95 Pulse Ox O2 Del Method O2 Del Method O2 Flow Rate 06/16/24 08:53 Room Air 06/16/24 07:17 Nasal Cannula 2 06/16/24 01:52 93 Room Air 06/16/24 01:52 Room Air 06/16/24 01:15 Room Air 06/15/24 23:49 Room Air 06/15/24 23:18 Room Air 06/15/24 23:03 Room Air PG Care Time/CCT Total # of Minutes Spent Total Time Spent with Patient: Total time spent is greater than 50% in coordination of care (as documented) at patient's floor/unit and/or counseling patient: Coding Level of Care Code 17989 SUB INP/OBS CARE 2/35MIN Diagnoses Intentional overdose T50.902A Suicidal ideation R45.851 Tylenol ingestion T39.1X1A Salicylate intoxication T39.091A SHITAL (acute kidney injury) N17.9
[2024-06-16 10:03] LABS: Base Excess VBG -2.1 mEq/L; HCO3 VBG 21 mmol/L; Oxygen Saturation VBG 90.1 %; PCO2 VBG 31 mmHg (38-50); PO2 VBG 57 mmHg; pH VBG 7.44 (7.36-7.41)
[2024-06-16] MEDS: hydrALAZINE HCL 20 MG/ML VIAL IV PRN (10:27)
[2024-06-16 12:23] LABS: Base Excess VBG -0.1 mEq/L; HCO3 VBG 22 mmol/L; PCO2 VBG 30 mmHg (38-50); PO2 VBG 63 mmHg; pH VBG 7.48 (7.36-7.41)
[2024-06-16 12:55] LABS: Albumin Globulin Ratio 1.5 (0.9-2); Albumin Level 3.6 gm/dl (3.4-5.0); BUN Creatinine Ratio 9.2 (10-20); Bilirubin,Total 0.2 mg/dl (0.2-1.0); Calcium 8.1 mg/dl (8.6-10.3); Creatinine Clr Calc Pharmacy 87.6 ml/min; Globulin 2.4 gm/dl (2.5-4.0); Potassium 3.4 mmol/L (3.5-5.1)
[2024-06-16 13:02] LABS: INR 1.2 (0.9-1.1); Prothrombin Time 13.2 Seconds (9.0-12.0)
--- NOTE | 2024-06-16 13:28 | Communication Note ---
Date of Service: June 16, 2024 Psychiatry was consulted to assess this 43 y/o male admitted to ICU following an intentional OD on Tylenol and Opioids. He reported being too drowsy and asked that administrative underwriter return later. He denied SI at this time. 1:1 staff at bedside. Plan: Evaluate when pt is more alert. D/w RN.
[2024-06-16] MEDS: POTASSIUM CHLORIDE / WTR 10 MEQ/100 ML PLCT IV ONE (13:53)
[2024-06-16 14:29] LABS: Base Excess VBG -0.9 mEq/L; HCO3 VBG 22 mmol/L; Oxygen Saturation VBG 96.2 %; PCO2 VBG 30 mmHg (38-50); PO2 VBG 72 mmHg; pH VBG 7.47 (7.36-7.41)
--- NOTE | 2024-06-16 14:51 | Electrocardiogram Report ---
Test Reason : Blood Pressure : */* mmHG Vent. Rate : 88 BPM Atrial Rate : 88 BPM P-R Int : 142 ms QRS Dur : 94 ms QT Int : 354 ms P-R-T Axes : 57 35 41 degrees QTcB Int : 428 ms Normal sinus rhythm with sinus arrhythmia Normal ECG When compared with ECG of 15-Aug-2020 21:55, Vent. rate has increased by 31 bpm Confirmed by [place] ([id number]) on 06/16/2024 2:51:11 PM Referred By: REFERRED SELF Confirmed By: [place]
[2024-06-16 17:00] LABS: Base Excess VBG -0.2 mEq/L; HCO3 VBG 23 mmol/L; Oxygen Saturation VBG 95.1 %; PCO2 VBG 31 mmHg (38-50); PO2 VBG 70 mmHg; pH VBG 7.47 (7.36-7.41)
[2024-06-16] MEDS: SODIUM CHLORIDE 0.9% 1,000 ML IV SCH (17:39)
[2024-06-16] MEDS: POTASSIUM CHLORIDE / WTR 10 MEQ/100 ML PLCT IV SCH (17:40)
[2024-06-16 19:05] LABS: Base Excess VBG 2.4 mEq/L; HCO3 VBG 25 mmol/L; Oxygen Saturation VBG 90.6 %; PCO2 VBG 32 mmHg (38-50); PO2 VBG 55 mmHg
[2024-06-16 19:25] LABS: Albumin Level 3.4 gm/dl (3.4-5.0); Bilirubin,Total 0.2 mg/dl (0.2-1.0); Potassium 3.6 mmol/L (3.5-5.1); Total Protein 5.7 gm/dl (6.0-8.3)
[2024-06-16 19:38] LABS: Acetaminophen < 3 ug/ml (10-30); Salicylate 28.2 mg/dl (3.0-30)
[2024-06-16 19:50] LABS: INR 1.3 (0.9-1.1); Prothrombin Time 13.7 Seconds (9.0-12.0)
[2024-06-16 20:21] LABS: Base Excess VBG 1.6 mEq/L; HCO3 VBG 25 mmol/L; Oxygen Saturation VBG 95.2 %; PCO2 VBG 33 mmHg (38-50); PO2 VBG 66 mmHg; pH VBG 7.48 (7.36-7.41)
[2024-06-16] MEDS: MELATONIN 3 MG TAB PO PRN (22:17)
[2024-06-17 00:03] LABS: HCO3 VBG 22 mmol/L; PCO2 VBG 32 mmHg (38-50); PO2 VBG 79 mmHg; pH VBG 7.45 (7.36-7.41)
[2024-06-17] MEDS: POTASSIUM CHLORIDE / WTR 10 MEQ/100 ML PLCT IV SCH (00:47)
--- NOTE | 2024-06-17 09:24 | Hospitalist Progress Note ---
Date of Service June 17, 2024 Assessment & Plan (1) Intentional overdose: Plan: -intentional overdose/Tylenol ingestion/salicylate ingestion/suicidal ideation/unresponsive episode -IVF -f/u BMP -salicylate levels normalized, bicarb drip d/c'd (2) Suicidal ideation: Plan: 1-1 ordered Psychiatry consulted (3) Tylenol ingestion: Plan: -f/u levels (4) Salicylate intoxication: Plan: -f/u levels -now WNL range (5) SHITAL (acute kidney injury): Plan: -con't IVF -f/u BMP Plan awaiting psych follow up to clear for discharge Admission and Anticipated Discharge Date Admission Date: June 15, 2024 Subjective Pt feeling better this am. Does not have any suicidal thoughts. Review of Systems Review of Systems: CONST: Negative for fever, body aches and chills. HENT: Negative for neck pain/stiffness, headache, congestion, sore throat, swelling. EYES: Negative for discharge/pain or vision changes. RESP: Negative for cough/hemoptysis and shortness of breath. CV: Negative chest pain, difficulty breathing, palpitations. ABD: Negative pain, nausea, vomiting. : Negative increase frequency, dysuria, blood in urine or stool. MUSC: Negative for muscle aches, edema. SKIN: Negative rash, lesions/sores. NEURO: Negative headache, dizziness, weakness. Physical Exam Physical Exam: GENERAL APPEARANCE NAD, activity normal for age, well developed/ well nourished, no cyanosis, pallor, or diaphoresis. EYES lids/conjunctiva normal. EARS/NOSE/THROAT Mucous membranes moist, nares normal, lips/teeth normal uvula midline without oral pharyngeal erythema, exudate or swelling TMs normal bilaterally. No lymphangitis/lymphedema. HEAD/NECK normocephalic atraumatic, no facial trauma, neck is supple. RESPIRATORY respiratory effort normal, speaks in full sentences, no tripod position, no accessory muscle use. Lungs clear to auscultation without rhonchi, wheezes, rales CARDIAC Regular rate and rhythm, no edema. ABDOMINAL Soft, ND/NT. No evidence of fluid wave. No pulsatile masses on exam, rebound tenderness, Saucedo sign or pain over Mcburney's point. MUSCLES/EXTREMITIES No abnormal range of motion, no swelling. SKIN Warm, pink and dry. No rashes, dermatoses, petechiae or lesions. NEUROLOGICAL Speech is clear and appropriate. Normal level of consciousness. Gait and coordination are normal. 5/5 strength in all extremities. PSYCH Normal mood and affect. Judgement/competence is appropriate Results & Data Results & Data Vital Signs (Past 12 Hours) Vital Signs Temp Pulse Pulse Resp BP Pulse Ox Pulse Ox 06/17/24 08:05 06/17/24 07:31 85 06/17/24 03:02 36.7 C 98 H 16 135/71 96 06/17/24 01:49 92 06/16/24 23:36 88 06/16/24 22:36 37.2 C 90 16 131/84 93 O2 Del Method O2 Del Method 06/17/24 08:05 Room Air 06/17/24 07:31 06/17/24 03:02 Room Air 06/17/24 01:49 Room Air 06/16/24 23:36 06/16/24 22:36 Room Air PG Care Time/CCT Total # of Minutes Spent Total Time Spent with Patient: Total time spent is greater than 50% in coordination of care (as documented) at patient's floor/unit and/or counseling patient: Coding Level of Care Code 44817 SUB INP/OBS CARE 2/35MIN Diagnoses Intentional overdose T50.902A Suicidal ideation R45.851 Tylenol ingestion T39.1X1A Salicylate intoxication T39.091A SHITAL (acute kidney injury) N17.9
--- NOTE | 2024-06-17 13:51 | History & Physical ---
Date of Service June 17, 2024 Impression / Recommendations Impression 43-year-old male with a history of ADHD and learning disability but no prior psychiatric treatment, presenting after a suicide attempt by opioid and acetaminophen overdose. The attempt was precipitated by learning of potential legal charges and exacerbated by recent depressive symptoms, financial stressors, and the loss of a close friend. The patient has a history of learning difficulties but no significant substance use or medical history. He is currently employed and has a supportive family. The patient is agreeable to voluntary psychiatric treatment. Diagnostically consistent with Unspecified Depressive Disorder, r/o Major Depressive Disorder vs Adjustment Disorder with Depressed Mood, Unspecified Learning Disability. Ro Borderline Intellectual Functioning/ Although he currently denied suicidal ideation, intent or plan, risk of harm to self remains moderate-high, given the seriousness and planned nature of the attempt and intent to at the time. (1) Intentional overdose: Encounter type: subsequent encounter Qualified Code(s): T50.902D - Poisoning by unspecified drugs, medicaments and biological substances, intentional self-harm, subsequent encounter (2) Suicidal ideation: (3) Learning disability: (4) Depression, unspecified: Depression Type: unspecified Qualified Code(s): F32.A - Depression, unspecified Plan Maintain 1:1 until reevaluation by psychiatry. Currently on a 302. He indicated a willingness to consent to voluntary admission; psychiatry liaison will facilitate admission once medically cleared. Pt may not be discharged without clearance by psychiatry. If anxiety ensues, recommend lorazepam 1mg q 8 hrs prn. Psychiatry will follow. Overall I spent a total of 105 minutes for this admission including review of chart records, review of labwork, direct evaluation of the patient, counseling the patient, ordering medication, risk assessment, discussion with the psychiatric liaison RN and documentation in the electronic health record. Suicide Risk Level Suicide Risk Level: High-Imminent (1-on-1 observation) Risk Factors Assessment Male: Yes : Yes Do You Have Access To A Gun?: Yes (He owns several firearms. He reports his family have removed them. ) Health Problems: Yes Mental Health Diagnoses: Yes Substance Use Disorders: No Previous Attempt: No Family History of Suicide: Yes (A distant uncle shot himself when patient was aged 10. ) Previous Psychiatric Hospitalization: No Hopelessness: No Protective Factors Assessment : No Responsible for Young Children: No Employed: Yes ([employer]) Stable Relationships: Yes (Parents, sister, aunt. ) Supportive Family: Yes Good Rapport with Provider: Yes Absence of Any Risk Factors Above: No Psychiatric History Identifying Data BANDAR CARLOS is a 43-year-old M who currently lives in [facility] alone. Background: 43-year-old male with a history of learning disability, ADHD, pmhx of sepsis, COVID, chronic back pain who presented to the ED due to an intentional overdose after learning of potential legal charges related to firearms. Psychiatry was consulted to assess for ongoing suicide risk. Pt is on a 302 involuntary commitment for suicide risk. Chief Complaint "I took an overdose". History of Present Illness History of Present Illness: The patient made a serious suicide attempt with intent to by overdosing on oxycodone and alcohol after learning earlier the preceding day from the police about potential legal charges related to firearms. The patient took approximately a half bottle of Tylenol, along with 5 oxycodone pills and a shot of alcohol with the intention of dying. The patient did have access to firearms at the time of the attempt but after considering the impact on his family, he decided on pills as a "ladle cleaner" method. He denied having suicidal ideation prior to getting the news of being possibly charged the day before. He denied prior attempts and expected to from the attempt.Upon waking up, the patient felt relieved that the attempt was unsuccessful and stated he would never try again. However, at the time of the attempt, he had clear intent to . The patient reported recent depressive symptoms, including loss of interest in activities, low energy, and significant weight gain of approximately 50 pounds over the past year. He denied symptoms of anxiety or panic. Denied a history of pablo. No psychosis elicited. Past Medical History: History of left foot surgery due to a fall at work resulting in a broken big toe. The patient was off work for 6 weeks following the injury. Reports being dropped as a baby (details unavailable). He occasionally takes OTC sleep aids. Shoulder blade pain COVID-19 (Acute) Bacterial pneumonia Sepsis Acute respiratory failure with hypoxia Pneumonia due to 2019-nCoV (Acute) Right inguinal pain (Acute) Chronic back pain (Chronic) Impaired fasting glucose (Chronic) Chronic back pain Nephrolithiasis Developmental History: Growing up, he lived with his parents and one younger sister. The patient's mother accidentally dropped him as an infant, but he does not recall the incident. He required special education from elementary through high school, ultimately graduating with a 2nd-grade level education. After graduation, the patient independently pursued further education, improving to a 10th-grade reading level within a year. No childhood abuse or self-abusive behaviors were reported. Family History: No known family history of mental illness. Mother and father are alive and supportive. Social History: The patient is single and has no children. He lives independently and is currently employed at a [employer], where he has worked for nearly a year. 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 His current job is a apple stressor as he often has to work many days without breaks. Also endorsed financial stress. Legal History: The patient has no prior legal history but recently learned of potential charges related to firearms. He was instructed by a friend to handle his firearms estate, unaware that a verbal agreement was insufficient without a will. The patient has not been formally charged at this time. Past Psychiatric History Previous Psych History: Psychiatric History: Chart review reveals diagnoses of ADHD and learning disability. He required special education and ultimately graduated high school at a 2nd-grade reading level. However, he denied other psychiatric diagnoses, treatment, hospitalizations, or medications. No history of suicide attempts. The patient later pursued education independently, improving to a 10th-grade level. He denied any significant substance use history whatsoever. Substance Use History: - Alcohol: Denied historical use. 1 shot consumed during suicide attempt - Marijuana: denied - Opioids: No regular use, consumed approximately 5 oxycodone pills during suicide attempt - Nicotine: Not reported Current Psychiatric Diagnosis: No prior mental health treatment. Outpatient Services: He denied any. Previous Psych Admissions: He denied any. Do You Have Access To A Gun?: Yes (He owns several firearms. He reports his family have removed them. ) History of Previous Suicide Attempt: No Past Head Trauma/Neuro History Dropped by parents as a baby. Other details unavailable. Allergies Allergy/AdvReac Type Severity Reaction Status Date / Time bee venom protein (honey bee) Allergy Mild SWELLING Verified 06/15/24 19:36 Home Medications Medication Instructions Recorded Confirmed Type No Known Home Medications 05/05/24 06/15/24 History Family History Family History of: None Family Mental Health History Comment: Denied. Alcohol History Hx of Alcohol Use Over the Past 12 Months: No (today only) Smoking Use Have You Smoked or Used Tobacco Products in the Last 30 Days: No Smoking Status: Unknown if ever smoked Substance History Hx of Prescription Med Misuse Over the Past 12 Months: No Hx of Over the Counter Med Misuse Over the Past 12 Months: No Hx of Inhalent Misuse Over the Past 12 Months: No Hx of Organic Substance Use Over the Past 12 Months: No Hx of Illegal Substances/Street Drug Use Over Past 12 Months: No Problems as a Result of Past Substance Use: None Identified Personal History Living Arrangements: Apartment Highest Grade Completed: High School Graduate Highest Grade Completed Comment: Special education all the way through 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 Whiting 06-22-19 Hx of inguinal hernia surgery (06/22/19) Laparoscopic Right Inguinal Hernia Repair with Mesh(Right) Open Umbilical Hernia Repair Dr. Whiting 06/22/19 History of foot surgery BILAT X4 TOTAL FOR FLAT FEET H/O vasectomy Family History Grandfather (Paternal) Congenital pes planus Grandmother (Maternal) Diabetes Sister Kidney stones Social History Smoking Status: Unknown if ever smoked Second Hand Exposure: Yes (PARENTS); Do You Dip or Chew Tobacco: No; Hx Alcohol Use: No Hx Substance Use: No Preferred Language: Belarusian Communication Ability: Effective Visual Impairment: No Limitations Hearing Ability: Normal Textile Screen Maker Required: No Beliefs That Will Affect Care: None marital status: Single Current Living Situation: Alone current occupational status: employed 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 No psychomotor agitation or retardation. Orientation: alert, oriented to person, oriented to place, oriented to time and cooperative Apperance: appropriately dressed, appropriately groomed and appeared stated age Eye Contact: good eye contact Motor Behavior: no abnormal motor movements Speech: normal rate/rhythm/volume of speech Affect: + flat affect and + constricted affect Mood: + depressed mood Thought Process: goal directed thought process, linear/logical thought process and clear/coherent thought process [place] Thought Content: + preoccupation, + cognitive distortions, reality based without delusions and + guilt Suicidal Thoughts: denies suicidal thoughts, denies suicidal plan and denies suicidal intent Homicidal Thoughts: denies homicidal thoughts, denies homicidal plan and denies homicidal intent Denied Cognition: recent memory grossly intact, remote memory grossly intact, attention grossly intact and language grossly intact Estimated Intelligence: + above average estimated intelligence Insight: + poor insight Judgment: + poor judgement Cognitive Assessment: Not formally assessed. Patient reported a history of learning difficulties and special education. Vital Signs (Past 24 Hours): Last Vital Signs Temp 37.1 C 06/17/24 10:55 Pulse 83 06/17/24 10:55 Resp 18 06/17/24 10:55 BP 141/80 H 06/17/24 10:55 Pulse Ox 96 06/17/24 10:55 O2 Del Method Room Air 06/17/24 10:55 O2 Flow Rate 2 06/16/24 07:17 Results & Data ([facility]) Laboratory Results Laboratory Results - last 24 hr 06/16/24 06/16/24 06/16/24 14:21 16:42 18:45 PT 13.7 H INR 1.3 H VBG pH 7.47 H 7.47 H 7.50 H VBG pCO2 30 L 31 L 32 L VBG pO2 72 70 55 VBG HCO3 22 23 25 VBG O2 Saturation 96.2 95.1 90.6 VBG Base Excess -0.9 -0.2 2.4 Potassium 3.4 L 3.4 L 3.6 Phosphorus Total Bilirubin 0.2 Direct Bilirubin 0.0 AST 13 ALT 20 Alkaline Phosphatase 66 Total Protein 5.7 L Albumin 3.4 Salicylates 34.6 H* 31.2 H* 28.2 Acetaminophen < 3 L 06/16/24 06/16/24 06/17/24 20:10 23:41 02:45 PT INR VBG pH 7.48 H 7.45 H VBG pCO2 33 L 32 L VBG pO2 66 79 VBG HCO3 25 22 VBG O2 Saturation 95.2 97.0 VBG Base Excess 1.6 -1.0 Potassium 3.6 3.3 L Phosphorus Total Bilirubin Direct Bilirubin AST ALT Alkaline Phosphatase Total Protein Albumin Salicylates 26.1 22.6 19.7 Acetaminophen 06/17/24 05:03 PT INR VBG pH VBG pCO2 VBG pO2 VBG HCO3 VBG O2 Saturation VBG Base Excess Potassium 3.6 Phosphorus 2.3 L Total Bilirubin Direct Bilirubin AST ALT Alkaline Phosphatase Total Protein Albumin Salicylates Acetaminophen Current Inpatient Medications Current Inpatient Medications: Current Inpatient Medications Hydralazine HCl (Hydralazine Hcl 20 Mg/Ml Vial) 10 mg IV Q8 PRN PRN Reason: sbp>185 or dbp>95 Stop: 07/16/24 10:04 Last Admin: 06/16/24 10:27 Dose: 10 mg Melatonin (Melatonin 3 Mg Tab) 3 mg PO HS PRN PRN Reason: Sleep Stop: 07/16/24 22:02 Last Admin: 06/16/24 22:17 Dose: 3 mg Ondansetron HCl (Ondansetron Inj 2 Mg/Ml 2 Ml Vial) 4 mg IV Q6H PRN PRN Reason: Nausea And Vomiting Stop: 07/16/24 01:48 Last Admin: 06/16/24 03:32 Dose: 4 mg
[2024-06-17 15:53] LABS: Hematocrit (blood only) 43.7 % (42.0-52.0); Hemoglobin 15.2 g/dl (14.0-18.0); Mean Corpuscular Hgb Conc 34.8 g/dL (32.0-36.0); Mean Corpuscular Volume 89.2 fL (80.0-100.0); Mean Platelet Volume 9.9 fL (9.4-12.4); Platelet Count 335 K/uL (130-400); RDW Coefficient of Variation 13.8 % (11.5-14.5); RDW Standard Deviation 45.2 fL (36.4-46.3); White Blood Count 11.98 K/ul (4.8-10.8)
[2024-06-17 16:04] LABS: Calcium 8.9 mg/dl (8.6-10.3); Creatinine Clr Calc Pharmacy 89.4 ml/min; Potassium 3.5 mmol/L (3.5-5.1)
--- NOTE | 2024-06-18 09:54 | Hospitalist Progress Note ---
Date of Service June 18, 2024 Assessment & Plan (1) Intentional overdose: Plan: -intentional overdose/Tylenol ingestion/salicylate ingestion/suicidal ideation/unresponsive episode -IVF -f/u BMP -salicylate levels normalized, bicarb drip d/c'd -pt is medically clear for discharge to inpatient psych at this time (2) Suicidal ideation: Plan: 1-1 ordered Psychiatry consulted (3) Tylenol ingestion: Plan: -f/u levels (4) Salicylate intoxication: Plan: -f/u levels -now WNL range (5) SHITAL (acute kidney injury): Plan: -resolved with IVF -f/u BMP Plan awaiting transfer to inpatient psych Admission and Anticipated Discharge Date Admission Date: June 15, 2024 Subjective Pt feeling better this am. Does not have any suicidal thoughts. Review of Systems Review of Systems: CONST: Negative for fever, body aches and chills. HENT: Negative for neck pain/stiffness, headache, congestion, sore throat, swelling. EYES: Negative for discharge/pain or vision changes. RESP: Negative for cough/hemoptysis and shortness of breath. CV: Negative chest pain, difficulty breathing, palpitations. ABD: Negative pain, nausea, vomiting. : Negative increase frequency, dysuria, blood in urine or stool. MUSC: Negative for muscle aches, edema. SKIN: Negative rash, lesions/sores. NEURO: Negative headache, dizziness, weakness. Physical Exam Physical Exam: GENERAL APPEARANCE NAD, activity normal for age, well developed/ well nourished, no cyanosis, pallor, or diaphoresis. EYES lids/conjunctiva normal. EARS/NOSE/THROAT Mucous membranes moist, nares normal, lips/teeth normal uvula midline without oral pharyngeal erythema, exudate or swelling TMs normal bilaterally. No lymphangitis/lymphedema. HEAD/NECK normocephalic atraumatic, no facial trauma, neck is supple. RESPIRATORY respiratory effort normal, speaks in full sentences, no tripod position, no accessory muscle use. Lungs clear to auscultation without rhonchi, wheezes, rales CARDIAC Regular rate and rhythm, no edema. ABDOMINAL Soft, ND/NT. No evidence of fluid wave. No pulsatile masses on exam, rebound tenderness, Saucedo sign or pain over Mcburney's point. MUSCLES/EXTREMITIES No abnormal range of motion, no swelling. SKIN Warm, pink and dry. No rashes, dermatoses, petechiae or lesions. NEUROLOGICAL Speech is clear and appropriate. Normal level of consciousness. Gait and coordination are normal. 5/5 strength in all extremities. PSYCH Normal mood and affect. Judgement/competence is appropriate Results & Data Results & Data Vital Signs (Past 12 Hours) Vital Signs Temp Pulse Pulse Resp BP Pulse Ox O2 Del Method 06/18/24 09:00 Room Air 06/18/24 08:23 77 06/18/24 07:19 36.5 C 72 16 133/94 94 Room Air 06/18/24 04:55 66 18 126/85 98 Room Air 06/18/24 01:00 06/18/24 00:33 37.5 C 70 21 129/86 92 Room Air O2 Del Method 06/18/24 09:00 06/18/24 08:23 06/18/24 07:19 06/18/24 04:55 06/18/24 01:00 Room Air 06/18/24 00:33 PG Care Time/CCT Total # of Minutes Spent Total Time Spent with Patient: Total time spent is greater than 50% in coordination of care (as documented) at patient's floor/unit and/or counseling patient: Coding Level of Care Code 12938 SUB INP/OBS CARE 2/35MIN Diagnoses Intentional overdose, subsequent encounter T50.902D Encounter type: subsequent encounter Suicidal ideation R45.851 Tylenol ingestion T39.1X1A Salicylate intoxication T39.091A SHITAL (acute kidney injury) N17.9 (1) Intentional overdose Encounter type: subsequent encounter Qualified Code(s): T50.902D - Poisoning by unspecified drugs, medicaments and biological substances, intentional self- harm, subsequent encounter
[2024-06-18 11:23] VITALS: BP 133/93; PULSE 79; RESP 20; TEMP 97.9; O2SAT 95
--- NOTE | 2024-06-18 13:40 | Psychiatric Progress Note ---
Date of Service June 18, 2024 Impression / Recommendations Impression 43-year-old male with a history of ADHD and learning disability but no prior psychiatric treatment, presenting after a suicide attempt by opioid and acetaminophen overdose. The attempt was precipitated by learning of potential legal charges and exacerbated by recent depressive symptoms, financial stressors, and the loss of a close friend. The patient has a history of learning difficulties but no significant substance use or medical history. He is currently employed and has a supportive family. The patient is agreeable to voluntary psychiatric treatment. Diagnostically consistent with major depressive disorder. Acute risk of self-harm remains elevated and high given suicide attempt requiring medical admission, major depressive symptoms, social isolation, limited insight, high psychic distress. Given elevated risk of harm to self they meet criteria for inpatient psychiatric care for diagnostic clarification, safety/stabilization, development of additional coping skills, medication management and disposition/safety planning once medically stable. If they do not agree to voluntary treatment at that time they will meet criteria for 302 status based on severity of suicide attempt and ongoing modifiable risk factors. He is now medically cleared and agreeable to inpatient psychiatry admission. Overall, I spent a total of 45 minutes with this case including review of chart records, review of labwork, direct evaluation of the patient at bedside, counseling the patient, discussion of the patient with the Nurse and with the hospitalist provider, discussion with the psychiatric liason during clinical rounds and documentation in the electronic health record. (1) Intentional overdose: (2) Suicidal ideation: (3) Depression, unspecified: (4) Learning disability: Plan -Maintain 1:1 and suicide precautions -Now medically clear and voluntary for inpatient psych, working on insurance authorization challenged by office being closed all weekend so no current ability to get pre-authorization -Pt may not be discharged AMA as would meet 302 criteria -If anxiety ensues, recommend lorazepam 1mg q 8 hrs prn. Risk Factors Assessment Male: Yes : Yes Do You Have Access To A Gun?: Yes (He owns several firearms. He reports his family have removed them. ) Health Problems: Yes Mental Health Diagnoses: Yes Substance Use Disorders: No Previous Attempt: No Family History of Suicide: Yes (A distant uncle shot himself when patient was aged 10. ) Previous Psychiatric Hospitalization: No Hopelessness: No Protective Factors Assessment : No Responsible for Young Children: No Employed: Yes ([employer]) Stable Relationships: Yes (Parents, sister, aunt. ) Supportive Family: Yes Good Rapport with Provider: Yes Absence of Any Risk Factors Above: No Interval History Identifying Information 43-year-old male with a history of learning disability, ADHD, pmhx of sepsis, COVID, chronic back pain who presented to the ED due to an intentional overdose after learning of potential legal charges related to firearms. Psychiatry was consulted to assess for ongoing suicide risk. Chief Complaint "I was for awhile". Subjective Subjective Patient was seen & assessed and interval progress reviewed. Reviewed recent suicide attempt, he notes he was planning it for "awhile". He now denies SI and is glad to be alive, cites his parents support as helping him feel better. He is agreeable for inpatient psychiatric admission. He reports no history of prior psychiatric medications. Physical Exam Vital Signs (Past 24 Hours) Last Vital Signs Temp 36.6 C 06/18/24 11:20 Pulse 79 06/18/24 11:20 Resp 20 06/18/24 11:20 BP 133/93 06/18/24 11:20 Pulse Ox 95 06/18/24 11:20 O2 Del Method Room Air 06/18/24 11:20 O2 Flow Rate 2 06/16/24 07:17 Results & Data ([facility]) Laboratory Results Laboratory Results - last 24 hr 06/17/24 06/18/24 15:32 10:54 WBC 11.98 H RBC 4.90 Hgb 15.2 Hct 43.7 MCV 89.2 MCH 31.0 MCHC 34.8 RDW Std Deviation 45.2 RDW Coeff of María 13.8 Plt Count 335 MPV 9.9 Sodium 140 Potassium 3.5 Chloride 112 H Carbon Dioxide 23 Anion Gap 5 BUN 14 Creatinine 1.17 Est Cr Clr Drug Dosing 89.4 eGFR 79.33 BUN/Creatinine Ratio 12.0 Glucose 95 Calcium 8.9 SARS-CoV-2 (PCR) NEGATIVE Current Inpatient Medications Current Inpatient Medications: Current Inpatient Medications Hydralazine HCl (Hydralazine Hcl 20 Mg/Ml Vial) 10 mg IV Q8 PRN PRN Reason: sbp>185 or dbp>95 Stop: 07/16/24 10:04 Last Admin: 06/16/24 10:27 Dose: 10 mg Melatonin (Melatonin 3 Mg Tab) 3 mg PO HS PRN PRN Reason: Sleep Stop: 07/16/24 22:02 Last Admin: 06/16/24 22:17 Dose: 3 mg Ondansetron HCl (Ondansetron Inj 2 Mg/Ml 2 Ml Vial) 4 mg IV Q6H PRN PRN Reason: Nausea And Vomiting Stop: 07/16/24 01:48 Last Admin: 06/16/24 03:32 Dose: 4 mg Mental Health & Subst Abuse Tx Therapist Name of Therapist: None Contractor General Building Name of Contractor General Building: None (1) Intentional overdose Encounter type: subsequent encounter Qualified Code(s): T50.902D - Poisoning by unspecified drugs, medicaments and biological substances, intentional self- harm, subsequent encounter (3) Depression, unspecified Depression Type: unspecified Qualified Code(s): F32.A - Depression, unspecified
--- NOTE | 2024-06-18 15:05 | Discharge Summary ---
Discharge Summary Date of Service June 18, 2024 Principal Dx & Hospital Course #1 = Principal Diagnosis (1) Intentional overdose: -intentional overdose/Tylenol ingestion/salicylate ingestion/suicidal ideation/unresponsive episode -IVF -f/u BMP -salicylate levels normalized, bicarb drip d/c'd -pt is medically clear for discharge to inpatient psych at this time (2) Suicidal ideation: 1-1 ordered Psychiatry consulted (3) Tylenol ingestion: -f/u levels (4) Salicylate intoxication: -f/u levels -now WNL range (5) SHITAL (acute kidney injury): -resolved with IVF -f/u BMP Plan awaiting transfer to inpatient psych Admission HPI Per Admitting Provider Patient is a 43-year-old male with pmhx of sepsis secondary to COVID in 2020 and chronic back pain. that presented to the ED due to an intentional overdose. Patient endorses taking half a bottle of either aspirin or Tylenol, 4-5 oxycodone, and 1-2 shots of alcohol. He endorses continued thoughts of suicidal ideation and self-harm; one-to-one ordered. Patient seen at bedside, he is lethargic but responds to verbal stimuli. He stated he attempted suicide earlier today but did not want to talk about why. ED note stated that patient was upset regarding his suicide of a friend. The patient texted goodbye to his father who then arrived at the patient's residence and called EMS. It was noted the patient received 1.2 Mg of Narcan en route due to unresponsiveness. Patient was found to have a Tylenol level of 10 so was started on NAC therapy. He also tested positive on MDMA screening. Patient stated that he does not take any medications daily at baseline and denies any psychiatric history. Patient denies dizziness, lightheadedness, dyspnea, chest pain, abdominal pain, nausea, numbness, tingling. He denies history of COPD or asthma. Did not assess patient's CODE STATUS as still having suicidal thoughts and stated that he "does not want to be here anymore". Spoke with patient control center. They recommend salicylate levels every 2 hours and no need for further acetaminophen levels. They recommend repeat liver function test and INR 12 hours after NAC initiated. They stated if salicylate levels increased to greater than 30 then start patient on 2 A of bicarb at 150 and continue bicarb until salicylate less than 30. Would need 2 IV lines as NAC and bicarb cannot go into same line. If need to start on bicarb trend K+ and pH every 2 hours with salicylate levels. Questionable concern for meloxicam ingestion as noted by EMS, possibly contributing to SHITAL however trend renal function and continue with IV fluids. If patient needs intubated please call poison control center immediately. Discharge Exam GENERAL APPEARANCE NAD, activity normal for age, well developed/ well nourished, no cyanosis, pallor, or diaphoresis. EYES lids/conjunctiva normal. EARS/NOSE/THROAT Mucous membranes moist, nares normal, lips/teeth normal uvula midline without oral pharyngeal erythema, exudate or swelling TMs normal bilaterally. No lymphangitis/lymphedema. HEAD/NECK normocephalic atraumatic, no facial trauma, neck is supple. RESPIRATORY respiratory effort normal, speaks in full sentences, no tripod position, no accessory muscle use. Lungs clear to auscultation without rhonchi, wheezes, rales CARDIAC Regular rate and rhythm, no edema. ABDOMINAL Soft, ND/NT. No evidence of fluid wave. No pulsatile masses on exam, rebound tenderness, Saucedo sign or pain over Mcburney's point. MUSCLES/EXTREMITIES No abnormal range of motion, no swelling. SKIN Warm, pink and dry. No rashes, dermatoses, petechiae or lesions. NEUROLOGICAL Speech is clear and appropriate. Normal level of consciousness. Gait and coordination are normal. 5/5 strength in all extremities. PSYCH Normal mood and affect. Judgement/competence is appropriate Discharge Plan Discharge Items Patient Disposition: Transfer Behavioral Health Fac Reason For Visit: INTENTIONAL OVERDOSE Discharge Diagnosis: intentional overdose Activity: Resume your previous activity Non-emergency contact: Primary Care Provider Call non-emergency contact if: you have any medication questions Follow-up/Referrals: Jasson Cochran MD [Primary Care Provider] - Diet: Regular Addtl Attending Provider Instructions: follow up with PMD in 2 weeks Pending Studies at Discharge: No Stand-Alone Forms: My [facility] Medications and DC Order Prescriptions: No Action No Known Home Medications Discharge Orders: Discharge Order (Routine); Ordered 06/18/24 Ordered By: Blair Albright Admission Data Admit Date/Time: 06/15/24 23:46 Attending Provider: Blair Albright Admit Provider: Jhony Ferrara Primary Care Provider: Jasson Cochran Other Providers: Lottie Merino; Blas Anne; Victoria Friedman; Fawn Carpenter; Boubacar Kruger; Howie Galloway; Jhony Ferrara Hospital Stay Data Consultations 06/15/24 23:40 Consult Psychiatry Routine 06/15/24 23:49 ED Decision to Admit Stat Diagnostic Imagining Performed 06/15/24 17:09 CT head/brain wo con Stat Pending Results Patient Have Any Pending Studies at Discharge: No Discharge Instructions Given to Patient (Per Discharging Provider) follow up with PMD in 2 weeks Total Time Total Time Spent Total Time Spent (In Minutes): 50 Coding Level of Care Code 76529 INP/OBS DISCH >30 MIN Diagnoses Intentional overdose, subsequent encounter T50.902D Encounter type: subsequent encounter Suicidal ideation R45.851 Tylenol ingestion T39.1X1A Salicylate intoxication T39.091A SHITAL (acute kidney injury) N17.9
[2024-06-19 20:27] LABS: MDA negative; MDEA negative; MDMA (Ecstasy) Urine, Confirm negative
== END 2024-06-18 16:01 | DRG 918 ==
LOC: ED 17:04 → INTOOBSV 23:46 → EDINP 23:46 → SUATTDRO 23:46 → 1E 06-16 08:53

== ENCOUNTER 2024-06-18 16:09 | Inpatient (IN) ==
[~2024-06-18 16:09] MED LIST changes: +ALUMINUM/MAGNESIUM SUSP 30 ML UDC PO PRN; +BISMUTH SUBSALICYLATE 262 MG CHEW PO PRN; +MAGNESIUM HYDROXIDE SUSP 30 ML UDC PO PRN; -ONDA4TAB7 SL; +SODIUM CHLORIDE 0.65% NA SOLN 45 ML (OCEAN) PRN; +hydrOXYzine HCl 25 MG TAB PO PRN
[2024-06-18 17:16] VITALS: RESP 16
[2024-06-18] MEDS: hydrOXYzine HCl 25 MG TAB PO PRN (21:57)
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
[2024-06-19] MEDS: buPROPion XL 150 MG TABCR PO SCH (11:33)
[2024-06-19] MEDS: traZODone HCL 50 MG TAB PO SCH (20:54)
[2024-06-20 06:26] VITALS: O2SAT 96
--- NOTE | 2024-06-20 08:54 | Psychiatric Progress Note ---
Date of Service June 20, 2024 Impression / Recommendations Impression BANDAR CARLOS is a 43-year-old man who currently lives in [place] alone, has a history of a nonspecified learning disability, and was admitted on 06/18/24 16:09 on a 201 voluntary commitment for suicide attempt via polypharmacy overdose resulting in ICU admission. Diagnostically consistent with major depressive disorder and possible component of complicated bereavement as well as possible ADHD as well as co-occurring learning disability per history. Unclear if there is also an intellectual disability as he doesn't recall ever having neuropsychological testing or any investigation into possible processing/nonverbal/visual/dyslexia as contributing causes. A: Mood improving, slept well last night with addition of trazodone. Working on establishing aftercare. Symptom questionnaires reviewed and consistent with some depression and anxiety and some features of ADHD but not conclusive. MNPR due to positive MRSA nasal swab Overall, I spent a total of 25 minutes on this case including meeting with the patient, reviewing the chart, nursing report, multidisciplinary team meeting, orders, and documentation. (1) Intentional overdose: (2) Major depressive disorder with current active episode: (3) Insomnia: (4) Mixed learning disorder: Plan 06/20/2024: -Continue current medications and tx plan. Needs support meeting. 06/19/2024: The patient was [facility] to the [facility] on q15 min checks (behavioral with suicide precautions) for safety. The patient will participate in group, recreational, and milieu therapies and will be offered additional individual and family sessions as clinically appropriate. -Start Wellbutrin XL 150mg qAM -Start trazodone 50mg HS -Continue to monitor BP daily, he feels it has been elevated in the past, denies any current symptoms related to this -Attempt outpatient referral for neuropsychological testing -CM referral -Consideration for therapy referral -Symptom questionnaires for depression, anxiety, ADHD Inventory Assets Strengths: supportive relationships, willing to get treatment Needs: safety and stabilization, medication adjustment, additional coping skills, increased outpatient services Suicide Risk Level Suicide Risk Level: Moderate (q15 min suicide checks) (s/p serious suicide attempt but he is glad to be alive, mood improving and feels safe in the hospital and feels able to ask for support) Risk Factors Assessment Male: Yes : Yes Do You Have Access To A Gun?: No Health Problems: No Mental Health Diagnoses: Yes Substance Use Disorders: No Previous Attempt: Yes Family History of Suicide: Yes Previous Psychiatric Hospitalization: No Hopelessness: No Protective Factors Assessment Stable Relationships: Yes Supportive Family: Yes Interval History Identifying Information BANDAR CARLOS is a 43-year-old man who currently lives in [place] alone, has a history of a nonspecified learning disability, and was admitted on 06/18/24 16:09 on a 201 voluntary commitment for suicide attempt via polypharmacy overdose resulting in ICU admission. Chief Complaint "I'm not so down on myself". Review of Systems Sleep Information Total Hours of Sleep: 7 Meal Information Percent Meal Consumed - Breakfast: 100 Percent Meal Consumed - Lunch: 100 Percent Meal Consumed - Dinner: 100 Subjective Subjective Patient was seen & assessed and interval progress reviewed with treatment team. His parents visited yesterday. Showered yesterday. Rated his mood as "happy" las t night. Reports his mood is improving. Likes the medications, slept well and feels Wellbutrin is helping him not feel depressed. Denies any side effects. Physical Exam Psychiatric Orientation: alert and oriented x 3 Apperance: appropriately dressed and appropriately groomed Eye Contact: good eye contact Motor Behavior: no abnormal motor movements Speech: normal rate/rhythm/volume of speech Affect: euthymic affect Mood: no depressed mood and no anxious mood Thought Process: goal directed thought process Thought Content: reality based without delusions Suicidal Thoughts: denies suicidal thoughts (but s/p serious suicide attempt), denies suicidal plan and denies suicidal intent Homicidal Thoughts: denies homicidal thoughts Hallucinations: no auditory hallucinations and no visual hallucinations Cognition: recent memory grossly intact, remote memory grossly intact, attention grossly intact and language grossly intact Insight: + fair insight Judgment: + fair judgement Vital Signs (Past 24 Hours) Last Vital Signs Temp 37.2 C 06/20/24 06:23 Pulse 87 06/20/24 06:25 Resp 16 06/20/24 06:23 BP 124/87 06/20/24 06:25 Pulse Ox 96 06/20/24 06:23 O2 Del Method Room Air 06/20/24 06:23 Results & Data (U) Current Inpatient Medications Current Inpatient Medications: Current Inpatient Medications Al Hydrox/Mg Hydrox/Simethicone (Aluminum/Magnesium Susp 30 Ml Udc) 30 ml PO Q4H PRN PRN Reason: GI Upset Stop: 07/18/24 16:07 Bismuth Subsalicylate (Bismuth Subsalicylate 262 Mg Chew) 2 tab PO Q30M PRN PRN Reason: Loose Stool/Diarrhea Stop: 07/18/24 16:07 Bupropion HCl (Bupropion Xl 150 Mg Tabcr) 150 mg PO QAM MARILOU Stop: 07/19/24 11:29 Last Admin: 06/20/24 07:47 Dose: 150 mg Hydroxyzine HCl (Hydroxyzine Hcl 25 Mg Tab) 50 mg PO HSZ PRN PRN Reason: Insomnia Stop: 07/18/24 16:07 Last Admin: 06/18/24 21:57 Dose: 50 mg Hydroxyzine HCl (Hydroxyzine Hcl 25 Mg Tab) 25 mg PO Q4H PRN PRN Reason: Anxiety Stop: 07/18/24 16:07 Magnesium Hydroxide (Magnesium Hydroxide Susp 30 Ml Udc) 30 ml PO DAILY PRN PRN Reason: Constipation Stop: 07/18/24 16:07 Sodium Chloride (Sodium Chloride 0.65% Na Soln 45 Ml ([place])) 1 - 2 sprays NA PRN PRN PRN Reason: Nasal Dryness/Congestion Stop: 07/18/24 16:07 Trazodone HCl (Trazodone Hcl 50 Mg Tab) 50 mg PO HS MARILOU Stop: 07/19/24 21:59 Last Admin: 06/19/24 20:54 Dose: 50 mg Mental Health & Subst Abuse Tx Therapist Name of Therapist: None Post Discharge Appointments Primary Care Physician Name Of Family Doctor/PCP: Dr. Cochran (1) Intentional overdose Encounter type: subsequent encounter Qualified Code(s): T50.902D - Poisoning by unspecified drugs, medicaments and biological substances, intentional self- harm, subsequent encounter
[2024-06-21 06:44] VITALS: BP 126/83; TEMP 98.4
--- NOTE | 2024-06-21 08:55 | Discharge Summary ---
Date of Service June 21, 2024 History of Present Illness He presents for psychiatric admission for worsening depression and suicide attempt in the context of multiple psychosocial stressors including intense work stress, financial strain, and recent by suicide of his close friend. He took a bottle of aspirin or acetaminophen, 4-5 tabs of oxycodone and 1-2 shots of alcohol as part of the attempt. He is now glad to have survived and cites the support of his parents as helping him feel a little bit better. He started to have more intense thoughts of suicide including ways to over the last few months. He decided on taking medications and had some "lying around". He decided to act on his plan when he felt he was going to have "legal issues" due to threats from his friend's brother. He notes "my perfect record means a lot to me, it was even worth life taking" in regards to his fears of having legal charges. He becomes tearful noting "it's just frustrating" and that "you work so hard and it's for nothing". He describes having a "really tough life" starting at a young age due to severe learning disability. He notes because of this "I've always had a problem with people thinking I'm stupid and somewhere along the way I believed it too". He expresses regret that he was never able to attend college especially after asking for help and not getting it from school. He endorses depressive symptoms starting a few months ago and worsening after his friend . He describes symptoms of tearfulness, anhedonia ("off and on"), helplessness, hopelessness, and decreased sleep due to sleep onset insomnia. SI has been occurring for about a year and intensified in recent months. Can get anxious at times. No history of panic attacks. No history of hyperactivity. Sometimes has some inattention. He is not currently prescribed any psychiatric medications. Psychiatric ROS notable for no current nor history of symptoms of pablo, psychosis, PTSD, OCD nor eating disorder. Additional collateral per initial psych consult note by Dr. Galloway on 06/17/2024: "The patient made a serious suicide attempt with intent to by overdosing on oxycodone and alcohol after learning earlier the preceding day from the police about potential legal charges related to firearms. The patient took approximately a half bottle of Tylenol, along with 5 oxycodone pills and a shot of alcohol with the intention of dying. The patient did have access to firearms at the time of the attempt but after considering the impact on his family, he decided on pills as a "laboratory equipment cleaner" method. He denied having suicidal ideation prior to getting the news of being possibly charged the day before. He denied prior attempts and expected to from the attempt.Upon waking up, the patient felt relieved that the attempt was unsuccessful and stated he would never try again. However, at the time of the attempt, he had clear intent to . The patient reported recent depressive symptoms, including loss of interest in activities, low energy, and significant weight gain of approximately 50 p ounds over the past year. He denied symptoms of anxiety or panic. Denied a history of pablo. No psychosis elicited." Physical Exam Vital Signs (Past 24 Hours) Last Vital Signs Temp 36.9 C 06/21/24 06:43 Pulse 82 06/21/24 06:43 Resp 16 06/21/24 06:43 BP 126/83 06/21/24 06:43 Pulse Ox 96 06/20/24 06:23 O2 Del Method Room Air 06/20/24 06:23 Principal Diagnosis Major Depressive Disorder Psychiatric Data See daily stay summary. In short, patient was engaged with the social/therapeutic milieu of the unit, safety was maintained and the patient was cooperative with care. Medication changes included initiation of Wellbutrin XL 150mg daily for depression and trazodone 50mg HS for insomnia/depression and they tolerated this well. A support session was held and safety plan was completed prior to discharge. They participated in safety planning and in discussions about ways to seek support and recognizing warning signs and utilizing coping skills. Reviewed ways to have their safety plan and contacts easily available should thoughts of SI re-emerge in the future. Reviewed importance of seeking emergency care should SI intensify, worsen or should they feel unsafe in the future which they agree to do. On the day of discharge they stated their mood was "great" and remained future-oriented including spending time with family, working on career goals and engaging in aftercare appointments for case management with goal of then establishing with therapy and consideration for outpatient neuropsychological testing based on insurance coverage/medicaid determination. Day of Discharge Assessment Today the patient voices readiness for discharge. They note improvement in mood and anxiety. They deny thoughts of harm to self or others. Thoughts are organized and they are clinically improved from admission. There is no evidence of psychosis. They improved in the hospital with support and medication adjustments. They agree to take medications as prescribed and keep follow-up appointments. At the time of the discharge they are deemed to be stable and appropriate for outpatient level of care. They are not deemed to be at imminent risk of harm to self or others. They are aware of emergency and crisis services. Knows to call 911 or go to nearest emergency care center if in a crisis which cannot be handled as an outpatient. Suicide risk assessment: Acute risk is low given improvement in mood and denial of SI, lack of access to lethal means, improvement in sleep, hopefulness. Chronic risk is moderate given some non-modifiable risk factors: periods of impulsivity, prior attempt, emotional reactivity, family history of & friend's by suicide, childhood trauma but also with protective factors including employed, good social support, sense of responsibility to family and social supports, positive coping skills, positive problem solving, willingness to engage with treatment and self- observation. Counseled on ways to reduce acute and chronic risk including engaging with outpatient providers, using safety plan if needed, utilizing supports, taking medication, and using coping skills. Modifiable risk factors of SI and depression were addressed during hospitalization through development of new coping skills, support meeting, safety planning, and medication adjustments. Discharge physical exam: See admission H&P, MSE per above and day of discharge summary. Overall, I spent a total of 35 minutes on this case including meeting with the patient, reviewing the chart, nursing report, multidisciplinary team meeting, discharge orders, anticipatory planning, safety planning, risk assessment and documentation. Transition of Care Transition Of Care Record: was reviewed with the patient Advance Directives Advance Directives Information Provided: Yes Advance Directives: No Mental Health Advance Directive: No Advance Directives on File: No Living Will: No Power of Eight Arm Operator: No Advance Directives Reason:: Declines as Mental Health Visit. Suicide Risk Level Suicide Risk Level Comments: Acute risk is low given denial of SI, future-oriented, feels well supported, see further assessment above. Risk Factors Assessment Male: Yes : Yes Do You Have Access To A Gun?: No Health Problems: No Mental Health Diagnoses: Yes Substance Use Disorders: No Previous Attempt: Yes Family History of Suicide: Yes Previous Psychiatric Hospitalization: No Hopelessness: No Protective Factors Assessment Employed: Yes Stable Relationships: Yes Supportive Family: Yes Hospital Course (1) Intentional overdose: (2) Major depressive disorder with current active episode: (3) Insomnia: (4) Mixed learning disorder: Plan 06/21/2024: -Mood improved, feels safe and desires discharge 06/20/2024: -Continue current medications and tx plan. Needs support meeting. 06/19/2024: The patient was admitted to the [facility] ([facility] unit) on q15 min checks (behavioral with suicide precautions) for safety. The patient will participate in group, recreational, and milieu therapies and will be offered additional individual and family sessions as clinically appropriate. -Start Wellbutrin XL 150mg qAM -Start trazodone 50mg HS -Continue to monitor BP daily, he feels it has been elevated in the past, denies any current symptoms related to this -Attempt outpatient referral for neuropsychological testing -CM referral -Consideration for therapy referral -Symptom questionnaires for depression, anxiety, ADHD Mental Health & Subst Abuse Tx Therapist Name of Therapist: None Ceramics Instructor Name of Ceramics Instructor: [facility] Case Management Phone Number for Ceramics Instructor: Post Discharge Appointments Primary Care Physician Name Of Family Doctor/PCP: Dr. Cochran Primary Care Date of Future Appointment with PCP: 06/22 Time of Appointment with PCP: 11AM Provider Appointment Comment: Will be seeing Pretty Webber Other #1: Name of Aftercare Appointment: Neuropsychology Testing-Rad[facility] Phone Number of Aftercare Appointment: [phone] Aftercare Appointment Comment: For future reference for neuropsychological testing if interested. #2: Name of Aftercare Appointment: [facility] Phone Number of Aftercare Appointment: Aftercare Appointment Comment: For future reference for neuropsychological testing. They have a waitlist Discharge Plan Discharge Items Patient Disposition: Home - Self-Care Reason For Visit: MAJOR DEPRESSIVE DISSORDER Discharge Diagnosis: Major Depressive Disorder Activity: Resume your previous activity Non-emergency contact: Primary Care Provider and Policy Value Calculator Call non-emergency contact if: you have any medication questions and your symptoms worsen Follow-up/Referrals: Jasson Cochran MD [Primary Care Provider] - Diet: Regular Addtl Attending Provider Instructions: SPECIAL CARE INSTRUCTIONS: 1. Follow through with your scheduled aftercare appointments. If unable to keep an appointment, please call to reschedule. 2. Take your medication only as prescribed. Medication should not be changed or stopped without the approval of your doctor. In the event of worsening symptoms or concerns about side effects, contact your doctor immediately. 3. Utilize new healthy coping skills, anger management skills, and stress management skills learned during your hospitalization. Journal feelings and process them with a support person. Identify stressors or situations that may result in relapse, deterioration or inappropriate behaviors and develop a plan to deal with those issues. 4. If your coping skills are ineffective and you are in crisis, contact your outpatient providers for direction. If unable to reach your providers, please call the [facility] CRISIS LINE AT , go to the [facility] walk-in center at [address] [place] [address] [address], [place], or go to the closest Emergency Room. 5. Avoid alcohol and un-prescribed drugs. 6. You have been provided with the Mental Health Advance Directives Pamphlet for your review. 7. Your condition is stable for discharge to outpatient level of care, but recovery is an ongoing process. Ifthoughts to harm yourself or others return, follow the safety plan developed during your stay. Planning for a safe return home includes securing weapons. Our treatment team recommends weaponsbe removed from the home until your outpatient provider reassesses your progress. In rare cases where the items themselvescannot be removed, guns and ammunitionshould be secured separatelyand keys stored by a reliable personoutside of the home. If you were admitted on an involuntary commitment, the police or other legal authorities may be involved in this process. AFTERCARE APPOINTMENTS: * Please call your insurance company prior to your scheduled appointment to confirm your aftercare providers are covered. Take your insurance information to your appointments. WHO TO CALL AND WHEN: Medical Emergencies: For questions or emergencies related to your hospital stay, please contact the Inpatient Behavioral Health Unit at [phone]. A heel slugger is on-call 24/11 for the Behavioral Health Unit for emergencies At any time you feel your situation is an emergency, you may also call 911 immediately. National Crisis Hotline: 980 Pending Studies at Discharge: No Stand-Alone Forms: My [facility] Medications and DC Order Prescriptions: New trazodone 50 mg Tablet 50 mg PO HS 30 Days Qty: 30 0RF bupropion HCl 150 mg Tablet Extended Release 24 Hr 150 mg PO QAM 30 Days Qty: 30 0RF No Action No Known Home Medications Discharge Orders: Discharge Order (Routine); Ordered 06/21/24 Ordered By: Lottie Merino Admission Data Admit Date/Time: 06/18/24 16:09 Attending Provider: Lottie Merino Admit Provider: Lottie Merino Primary Care Provider: Jasson Cochran Other Interventions: Discharge Summary Assessment (RN) Last Done: 06/21/24 13:49 PSY Interdisciplinary Discharge Planning Last Done: 06/21/24 13:37 Coding Level of Care Code 07458 D/C day mgmt > 30 min Diagnoses Intentional overdose, subsequent encounter T50.902D Encounter type: subsequent encounter Major depressive disorder with current active episode F32.9 Insomnia G47.00 Mixed learning disorder F88
[2024-06-21 12:46] VITALS: PULSE 87
== END 2024-06-21 13:47 | disposition home or self-care (01) | DRG 881 ==
LOC: 3S 16:09